=== PATIENT | female | born 1995 | race Caucasian/White ===

== ENCOUNTER 2018-09-04 06:20 | Emergency (ER) | payer OTHER, SELFPAY ==
[2018-09-04 06:21] VITALS: BP 131/101; PULSE 96; RESP 16; TEMP 36.5; O2SAT 99; BMI 37.8
--- NOTE | 2018-09-04 06:24 | ED.VISSUMM ---
- ER Visit Summary Date of Service: 09/04/18 Chief Complaint: Left ankle injury History of Present Illness: The patient is a 22 F presenting for evaluation secondary to a left ankle injury. Patient reports that she slipped on ice today and her left leg buckled underneath her. She reports injury to her left ankle. She has some difficulty with bearing weight on it. She denies any other injuries at this time. She had a fracture to that ankle 13 years ago. Physical Examination: Physical exam unremarkable except for lower extremity exam. Patient has no proximal fibular head tenderness. Normal range of motion of the hip and knee. She has a left lateral malleolar swelling and tenderness with limited range of motion of the ankle. No tenderness over the midfoot, no pain with palpation of the fifth metatarsal. Normal capillary refill normal DP and PT pulses. Test Results: Three-view ankle x-ray by my personal interpretation is negative for fracture Emergency Department Course and Treatment: Patient presented secondary to an ankle injury. X-rays are negative. Patient was provided with an Charli wrap crutches and Naprosyn in the emergency department. She was recommended on rest ice elevation and NSAIDs as well as range of motion exercises at home. Disposition: Discharge Impression: 1. Left ankle sprain This note was generated with [employer] dictation software. It may contain incorrect words, spelling, and punctuation that were not noted in review of the chart prior to signing ED Disposition - Plan for ED Patient: Disposition: Home or Assisted Living Diagnosis: Left ankle sprain Instructions: ED Sprain Ankle W X Ray Prescriptions: Naproxen [Naprosyn] 500 mg PO BID PRN #20 tab Referrals: Marvin Valiente MD [Primary Care Provider] - 10-14 Days if not better
--- NOTE | 2018-09-04 06:25 | RAD_ITS ---
STUDY: X-RAY - LEFT ANKLE REASON FOR EXAM: Female, 22 years old. Left-sided ankle pain after fall. TECHNIQUE: 3 view(s) of the ankle. COMPARISON: Prior comparison studies are not available for review at this time. FINDINGS: Normal visualized distal tibia and fibula. Normal medial and lateral malleoli. Normal tibiotalar articulation and ankle mortise. There is a lucency within the medial talar dome suggesting OCD. Small bone fragment is located posterior to the talus may be the result of avulsion injury. There is a small plantar calcaneal spur. The tarsal bones otherwise have a grossly normal appearance. The joint spaces are within normal limits. There is soft tissue swelling of the medial ankle. RAD/Ankle min 3 Views IMPRESSION: 1. Possible avulsion injury of the posterior ankle. 2. OCD of the medial talar dome. Electronically Signed: Sarah Serrato MD at 6:55 EST , Service support ,
[2018-09-04] MEDS: Naproxen 500 MG Tablet PO (06:42)
[2018-09-04 06:48] VITALS: BP 128/90; PULSE 90; RESP 16; O2SAT 96
== END 2018-09-04 06:49 | disposition home or self-care (01) ==
PROVIDERS: Emergency Provider Emergency Medicine; Family Provider Family Medicine; PCP Family Medicine
DX: S93.402A Sprain of unspecified ligament of left ankle, initial encounter (principal); W00.0XXA Fall on same level due to ice and snow, initial encounter; Y93.89 Activity, other specified; Y92.89 Other specified places as the place of occurrence of the external cause; Y99.8 Other external cause status
CPT/HCPCS: 73610; 99284

== ENCOUNTER 2018-10-15 11:23 | Day surgery (SDC) | payer OTHER, SELFPAY ==
[2018-10-15] VITALS (7 sets, daily range): BP systolic 116–135; BP diastolic 76–91; PULSE 95–125; RESP 16; TEMP 35.9–36.4; O2SAT 94–99; BMI 39.3
--- NOTE | 2018-10-15 | BON_PTH ---
PATIENT: MARLO PALMER [place] [facility] [id number] AGE/SX: 23/F ROOM: RE10/15/[address]: Dr. Andria Bal DPM : 1995 BED: DIS: 10/15/2018 SPEC #: [id number] RECD: 10/16/18 12:27 STATUS: BEN REMary Lou #: [id number] KELLIE: 10/15/18 00:[address]: Andria Bal DEPT: SURGICAL PATHOLOGY RECD BY: Chance Collins ENTERED: 10/16/18 12:27 SP TYPE: Bone OTHR DR: Dr. Marvin Valiente MD Tissues: Bone of ankle, NOS Procedures: Decalcification bone/plaque Surgery Specimen Level IV HEADER OPERATION: Ankle arthrotomy with excision of talus fracture fragments PRE-OP DIAGNOSIS: Displaced dome fracture of left talus TISSUE SUBMITTED: Talar osteochondral defect left ankle MICROSCOPIC DIAGNOSIS Osteochondral defect, left ankle, biopsy: Fragments of hyaline cartilage with reactive change. AM:reyes 10/21/18 MICROSCOPIC DESCRIPTION Slides are reviewed. GROSS DESCRIPTION Received in fixative is one container labeled with the patient's name and designated left ankle. The specimen consists of multiple pieces of bone that in aggregate measure 1.5 x 0.3 x 0.1 cm. The specimen is totally submitted in one cassette after decalcification. / SJ:reyes 10/16/18 TC:5 CPT: 46763, 20998
[2018-10-15 11:49] LABS: Internal QC Validated? YES +Cl - CLEAR BKGD
[2018-10-15 11:52] LABS: Pregnancy, Urine Negative Negative
[2018-10-15 12:21] LABS: International Normalized Ratio 0.9; Prothrombin Time (Protime)PT. 12.3 SECONDS (11.7-14.9)
[2018-10-15 12:22] LABS: Hematocrit 44.3 % (37-47); Hemoglobin 13.9 g/dl (12.0-15.0); Mean Corp Hgb Conc 31.4 g/gl (32-36); Mean Corpuscular Hgb 26.8 pg (27.0-32.0); Mean Corpuscular Volume 85.4 fL (81-99); RBC Distribution Width CV 13.8 % (11.6-14.6); RBC Distribution Width SD 42.8 fl (35.1-43.9); Red Blood Count 5.19 M/mm3 (4.2-5.4); White Blood Count 8.8 K/mm3 (4.4-11.0)
[2018-10-15 12:23] LABS: Mean Platelet Vol. 9.8 fl (6.2-12.0); Platelet Count 411 K/mm3 (150-450); Scan Indicated on CBC? Y/N NO
[2018-10-15 12:57] LABS: AST(SGOT) 13 U/L (15-37); Alanine Aminotransfer ALT/SGPT 30 U/L (13-56); Albumin, Serum 3.8 g/dL (3.2-5.0); Alkaline Phosphatase 91 U/L (45-117); Bilirubin, Direct 0.07 mg/dL (0.00-0.30); Globulin 3.6 g/dL (2.2-4.2); Protein, Total 7.4 g/dL (6.4-8.2)
--- NOTE | 2018-10-15 13:08 | RAD_ITS ---
STUDY: X-RAY - LEFT ANKLE REASON FOR EXAM: Female, 23 years old. Left ankle arthrotomy with excision of talar fracture fragments TECHNIQUE: 2 view(s) of the ankle. COMPARISON: Previous study of September 04, 2018 FINDINGS: 2 intraoperative views of the left ankle were obtained. Hemostats and probe are seen overlying the medial tibial plateau. RAD/Ankle 2 Views IMPRESSION: 2 intraoperative views of the left ankle obtained. Total fluoroscopy time of 56.1 seconds. Electronically Signed: Ed Cuevas MD at 20:54 EDT , Service support ,
[2018-10-15] MEDS: Bupivacaine Mpf 0.5% 30 ML VIAL (17:15)
--- NOTE | 2018-10-15 17:51 | PCM.DC.ORTHO ---
Discharge Activity: May Not Drive, May not drive while taking narcotic pain medications., May Not Shower, Use Walker, Use Crutches Ice area for (Minutes): 20 - apply ice behind left knee, 20 minutes of each hour while awake Weight Bearing Status: No weight bearing Keep extremity elevated above heart level: Operative Extremity Call your doctor if your incision/area has: Sudden Increased Bleeding Call your doctor if you observe: Fever of 101 or Higher, Inability to urinate, Shortness of breath, Dizziness, Increased palpitations (irregular heartbeat), Calf discomfort, Uncontrolled pain Cleanse incision/area with: Keep Dressing Clean & Dry Allergies/Adverse Reactions: Allergies amoxicillin [From Augmentin] Allergy (Verified 10/09/18 14:54) Rash clavulanic acid [From Augmentin] Allergy (Verified 10/09/18 14:54) Rash Medications to take at Discharge Aspirin/Acetaminophen/Caffeine [Excedrin Extra Strength Caplet] 1 each PO DAILY PRN 10/09/18 Hydrocodone Bitart/Apap 5-325 [Leslie 5MG-325MG] 1 tab PO Q4H PRN PRN 7 Days #42 tab 10/15/18 The following prescriptions were given: Hydrocodone Bitart/Apap 5-325 [Leslie 5MG-325MG] 1 tab PO Q4H PRN PRN 7 Days #42 tab PRN Reason: Pain Primary Care Physician: Marvin Valiente MD [Primary Care Provider] - Test Results: Test results from this visit will be discussed in further detail at your follow-up appointment, if applicable. Please Follow Up With: Andria Bal DPM - please follow up at your previously scheduled post operative appointment Proposed Discharge Date: 10/15/18
--- NOTE | 2018-10-15 17:54 | DCINST_ITS ---
Discharge Activity: May Not Drive, May not drive while taking narcotic pain medications., May Not Shower, Use Walker, Use Crutches Ice area for (Minutes): 20 - apply ice behind left knee, 20 minutes of each hour while awake Weight Bearing Status: No weight bearing Keep extremity elevated above heart level: Operative Extremity Call your doctor if your incision/area has: Sudden Increased Bleeding Call your doctor if you observe: Fever of 101 or Higher, Inability to urinate, Shortness of breath, Dizziness, Increased palpitations (irregular heartbeat), Calf discomfort, Uncontrolled pain Cleanse incision/area with: Keep Dressing Clean & Dry Allergies/Adverse Reactions: Allergies amoxicillin [From Augmentin] Allergy (Verified 10/09/18 14:54) Rash clavulanic acid [From Augmentin] Allergy (Verified 10/09/18 14:54) Rash Medications to take at Discharge Aspirin/Acetaminophen/Caffeine [Excedrin Extra Strength Caplet] 1 each PO DAILY PRN 10/09/18 Hydrocodone Bitart/Apap 5-325 [[place] 5MG-325MG] 1 tab PO Q4H PRN PRN 7 Days #42 tab 10/15/18 The following prescriptions were given: Hydrocodone Bitart/Apap 5-325 [[place] 5MG-325MG] 1 tab PO Q4H PRN PRN 7 Days #42 tab PRN Reason: Pain Primary Care Physician: Marvin Valiente MD [Primary Care Provider] - Test Results: Test results from this visit will be discussed in further detail at your follow- up appointment, if applicable. Please Follow Up With: Andria Bal DPM - please follow up at your previously scheduled post operative appointment Proposed Discharge Date: 10/15/18
--- NOTE | 2018-10-15 17:54 | PCM.OPRPT ---
Report of Operation Date of Procedure: 10/15/18 Pre-Operative Diagnosis: L talus osteochondral lesion/fracture of medial talar dome Post-Operative Diagnosis: same Surgery/Procedure Performed:: L ankle arthrotomy with microfracture and application of Biocartilage allograft Description of Surgical Findings:: see dictation greeting card writer: Rhona Lucia Type of Anesthesia:: General/Supplemental Specimen's removed: L talar bone/cartilage Estimated Blood Loss (mL): minimal Description of Procedure: Pt is a 23 yo F who slipped on ice on 09/04/2018 and injured her left ankle. She was evaluated at an OSH ER the same day and was diagnosed with a sprain. Her pain did not resolve and her PCP referred her to my clinic with repeat radiographs. She was seen in my clinic 09/23/2018 and given her clinical presentation and the films I ordered an MRI for evaluation of an osteochondral lesion/fracture of the talar dome. MRI of left ankle on 09/29/2018 noted an osteochondral fracture of the medial talar dome with fracture fragments, along with several sprains, contusions and a small nondisplaced fracture of the posterior malleolus. Findings were discussed with the patient and she elected to proceed with surgical intervention of the osteochondral fracture of the medial talar dome. Pt would like surgical intervention today. All risks, complications, and alternatives were discussed with the patient, and the patient signed an informed consent. No guarantees were given. Procedure: On 10/15/2018, Yani Urbina was visually and verbally identified in the preoperative holding area. The consent form was again reviewed with the patient, as were all risks, complications, and alternatives and the patient wished to proceed with the proposed surgery. The left ankle was marked as the correct operative extremity. The patient was brought to the operating room and placed on the operating room table in the normal SUPINE position. a lead apron was placed circumferentially around the patient. After induction by anesthesia, a surgical time out was performed and all present were in agreement. a pneumatic thigh tourniquet was then placed. At this time the left lower extremity was prepped and draped in the usual sterile fashion. after exsanguination with an esmarch the tourniquet was inflated to 300 mmHg. At this time attention was directed to the medial ankle gutter. Using a #15 blade, a curvilinear incision was made over the medial gutter of the ankle. The incision was bluntly carried deep through the subcutaneous tissues with careful attention paid to all bleeders, which were clamped and tied or bovied as necessary. All vital neurovascular structures were retracted. The medial talar dome was visualized. The tibiotalar joint itself was noted to be tight and significantly narrowed. At this time I utilized the Arthrex ankle distractor to aide in visualization of the damaged cartilage. As the area of concern was still not clearly seen we did engage a thigh bravo under the drapes. This again improved the distraction of the ankle joint and with plantarflexion I could locate and visualize the defect, however, the narrowness of her tibiotalar joint did not allow for typical instrumention in an ankle arthrotomy to be successfully utilized. At this time I used the Arthrex small joint arthroscopy camera to aid in visualization of the medial talar dome defect along with microsurgery pics, curettes, and graspers to remove damage cartilage. An attempt to access the area of concern from a lateral port was unsuccessful even with maximal distraction. I returned to the medial incision for access and utilized the microsurgery instruments. 5 cc of 1% lidocaine with epi was used while the the pneumatic thigh tourniquet was deflated to aid in visualization. Copious amounts of normal sterile saline was used through the case to irrigate the joint of debrided and loose cartilage and fracture fragments. Once sufficient loose cartilage and bone fracture fragments of the talus were removed and sent to pathology the ankle joint was dried with suction and manually. The Arthrex Biocartilage was then packed into the deficit utilizing the camera for visualization and the microsurgery tools. Once a satisfactory amount was applied, Evicel fibrin sealant was applied to the Biocartilage with the joint being held still for > 60 seconds. Closure was then initiated with 2.0 vicryl for deep tissues, 3.0 vicryl for subcutaneous tissues, and 3.0 prolene for skin. 10 cc of 0.5% marcaine plain was injected at the end of the case as an ankle block to aid in post operative pain management. betadine adaptic, and dry, sterile dressings were applied to the incisions with a multi layer compressive dressing and well padded posterior splint. All cartilage and bony fracture fragments were sent to pathology. Total tourniquet time was 180 minutes with immediate capillary refill noted to all digits upon deflation after the first 120 minutes and after a period of > 30 minutes the tourniquet was reinflation for an additional 44 minutes. Again, upon deflation of the tourniquet immediate capillary refill was noted to all digits. The patient tolerated the procedure and anesthesia well. The patient was then transported to the postanesthesia care unit by a member of the anesthesia team and myself with all vital signs stable and neurovascular status of the left lower extremity equal to pre-operative levels. At the end of the case all sponge, needle and instrument counts were found to be correct. Physician clinic office assistant was integral in all portions of this procedure. They assisted with positioning the patient, draping the extremity, holding retractors, closing the wound, and applying the dressing. This was all done under my direct supervision. The physician clinic office assistant was essential for a successful, efficient surgery. Grafts/Implants Used: Arthrex Biocartilage with Evicel fibrin sealant - Complications none - Admit VTE Documentation VTE Present on Admission: No VTE Mechan Device Prophylaxis: SCD's, Knee High ESPINOZA Hose VTE Pharm Prophylaxis ordered?: Yes
--- NOTE | 2018-10-15 17:57 | OP.PCM_ITS ---
Report of Operation Date of Procedure: 10/15/18 Pre-Operative Diagnosis: L talus osteochondral lesion/fracture of medial talar dome Post-Operative Diagnosis: same Surgery/Procedure Performed:: L ankle arthrotomy with microfracture and application of Biocartilage allograft Description of Surgical Findings:: see dictation professor of industrial technology: Rhona Lucia Type of Anesthesia:: General/Supplemental Specimen's removed: L talar bone/cartilage Estimated Blood Loss (mL): minimal Description of Procedure: Pt is a 23 yo F who slipped on ice on 09/04/2018 and injured her left ankle. She was evaluated at an OSH ER the same day and was diagnosed with a sprain. Her pain did not resolve and her PCP referred her to my clinic with repeat radiographs. She was seen in my clinic 09/23/2018 and given her clinical presentation and the films I ordered an MRI for evaluation of an osteochondral lesion/fracture of the talar dome. MRI of left ankle on 09/29/2018 noted an osteochondral fracture of the medial talar dome with fracture fragments, along with several sprains, contusions and a small nondisplaced fracture of the p osterior malleolus. Findings were discussed with the patient and she elected to proceed with surgical intervention of the osteochondral fracture of the medial talar dome. Pt would like surgical intervention today. All risks, complications, and alternatives were discussed with the patient, and the patient signed an informed consent. No guarantees were given. Procedure: On 10/15/2018, Yani Urbina was visually and verbally identified in the preoperative holding area. The consent form was again reviewed with the patient, as were all risks, complications, and alternatives and the patient wish ed to proceed with the proposed surgery. The left ankle was marked as the correct operative extremity. The patient was brought to the operating room and placed on the operating room table in the normal SUPINE position. a lead apron was placed circumferentially around the patient. After induction by anesthesia, a surgical time out was performed and all present were in agreement. a pneumatic thigh tourniquet was then placed. At this time the left lower extremity was prepped and draped in the usual sterile fashion. after exsanguination with an esmarch the tourniquet was inflated to 300 mmHg. At this time attention was directed to the medial ankle gutter. Using a #15 blade, a curvilinear incision was made over the medial gutter of the ankle. The incision was bluntly carried deep through the subcutaneous tissues with careful attention paid to all bleeders, which were clamped and tied or bovied as necessary. All vital neurovascular structures were retracted. The medial talar dome was visualized. The tibiotalar joint itself was noted to be tight and significantly narrowed. At this time I utilized the Arthrex ankle distractor to aide in visualization of the damaged cartilage. As the area of concern was still not clearly seen we did engage a thigh bravo under the drapes. This again improved the distraction of the ankle joint and with plantarflexion I could locate and visualize the defect, however, the narrowness of her tibiotalar joint did not allow for typical instrumention in an ankle arthrotomy to be successfully utilized. At this time I used the Arthrex small joint arthroscopy camera to aid in visualization of the medial talar dome defect along with microsurgery pics, curettes, and graspers to remove damage cartilage. An attempt to access the area of concern from a lateral port was unsuccessful even with maximal distraction. I returned to the medial incision for access and utilized the microsurgery instruments. 5 cc of 1% lidocaine with epi was used while the the pneumatic thigh tourniquet was deflated to aid in visualization. Copious amounts of normal sterile saline was used through the case to irrigate the joint of debrided and loose cartilage and fracture fragments. Once sufficient loose cartilage and bone fracture fragments of the talus were removed and sent to pathology the ankle joint was dried with suction and manually. The Arthrex Biocartilage was then packed into the deficit utilizing the camera for visualization and the microsurgery tools. Once a satisfactory amount was applied, Evicel fibrin sealant was applied to the Biocartilage with the joint being held still for > 60 seconds. Closure was then initiated with 2.0 vicryl for deep tissues, 3.0 vicryl for subcutaneous tissues, and 3.0 prolene for skin. 10 cc of 0.5% marcaine plain was injected at the end of the case as an ankle block to aid in post operative pain management. betadine adaptic, and dry, sterile dressings were applied to the incisions with a multi layer compressive dressing and well padded posterior splint. All cartilage and bony fracture fragments were sent to pathology. Total tourniquet time was 180 minutes with immediate capillary refill noted to all digits upon deflation after the first 120 minutes and after a period of > 30 minutes the tourniquet was reinflation for an additional 44 minutes. Again, upon deflation of the tourniquet immediate capillary refill was noted to all digits. The patient tolerated the procedure and anesthesia well. The patient was then transported to the postanesthesia care unit by a member of the anesthesia team and myself with all vital signs stable and neurovascular status of the left lower extremity equal to pre-operative levels. At the end of the case all sponge, needle and instrument counts were found to be correct. Physician dental assistant teacher was integral in all portions of this procedure. They assisted with positioning the patient, draping the extremity, holding retractors, closing the wound, and applying the dressing. This was all done under my direct supervision. The physician dental assistant teacher was essential for a successful, efficient surgery. Grafts/Implants Used: Arthrex Biocartilage with Evicel fibrin sealant - Complications none - Admit VTE Documentation VTE Present on Admission: No VTE Mechan Device Prophylaxis: SCD's, Knee High ESPINOZA Hose VTE Pharm Prophylaxis ordered?: Yes
--- NOTE | 2018-10-15 18:10 | RAD_ITS ---
STUDY: X-RAY - LEFT ANKLE REASON FOR EXAM: Female, 23 years old. Status post ankle arthrotomy TECHNIQUE: 3 view(s) of the ankle. COMPARISON: Prior study of earlier this date FINDINGS: Normal visualized distal tibia and fibula. Normal medial and lateral malleoli. Normal tibiotalar articulation and ankle mortise. There is a small cortical defect within sclerotic margins of the medial talar plateau consistent with osteochondritis dissecans. The visualized subtalar, talonavicular, calcaneocuboid and tarsal articulations are normal. The soft tissue structures are unremarkable. RAD/Ankle min 3 Views IMPRESSION: Cortical defect with sclerotic margins of the medial talar plateau consistent with osteochondritis dissecans. Electronically Signed: Ed Cuevas MD at 22:18 EDT , Service support ,
[2018-10-15] MEDS: Ketorolac 30 MG/ML Syringe IV (18:29)
== END 2018-10-15 20:10 | disposition home or self-care (01) ==
LOC: SDC 11:25 → AC 11:25
PROVIDERS: Anesthesiology; Family Provider Family Medicine; PCP Family Medicine; Referring Provider Podiatrist Foot & Ankle Surgery; Visit Provider Podiatrist Foot & Ankle Surgery
PROC: (CPT 29892; principal; 2018-10-15 12:45)
DX: S92.142A Displaced dome fracture of left talus, initial encounter for closed fracture (principal); F17.200 Nicotine dependence, unspecified, uncomplicated; W00.0XXA Fall on same level due to ice and snow, initial encounter; Y93.89 Activity, other specified; Y92.89 Other specified places as the place of occurrence of the external cause; Y99.8 Other external cause status
CPT/HCPCS: 01464; 29892; 73600; 73610; 76000; 80076; 81025; 85027; 85610; 85730; 88304; 88305; 88311; J7120; J2405

== ENCOUNTER → 2019-01-28 | Outpatient (CLI) | payer OTHER, SELFPAY ==
[2018-10-15 11:39] VITALS: BMI 39.3
[2019-02-02 17:00] LABS: HPV Reflexed? NOT INDICATED
== END | disposition home or self-care (01) ==
LOC: LABSPEC 13:21
PROVIDERS: PCP Family Medicine; Visit Provider Obstetrics & Gynecology
DX: Z12.4 Encounter for screening for malignant neoplasm of cervix (principal)
CPT/HCPCS: 88175; G0145

== ENCOUNTER → 2020-03-01 | Outpatient (CLI) | payer OTHER, SELFPAY ==
[2018-10-15 11:39] VITALS: BMI 39.3
--- NOTE | 2020-03-01 12:49 | US_ITS ---
STUDY: SUPERFICIAL ULTRASOUND - RIGHT WRIST REASON FOR EXAM: Female, 24 years old. Palpable wrist lump RT TECHNIQUE: A superficial ultrasound was performed with real-time and static lee-scale imaging. COMPARISON: None. FINDINGS: The palpable abnormality corresponds to a 3 mm x 3 mm x 2 mm cyst. This most likely represents a ganglion cyst. US/Ext Non Vasc Limited/Soft Tiss IMPRESSION: The palpable abnormality corresponds to a 3 mm x 3 mm x 2 mm cyst. This most likely represents a ganglion cyst. Electronically Signed: Chaim Pettit, at 15:02 EDT , Service support ,
== END | disposition home or self-care (01) ==
LOC: US 12:45
PROVIDERS: PCP Family Medicine; Referring Provider Physician Assistant; Visit Provider Physician Assistant
DX: M25.531 Pain in right wrist (principal)
CPT/HCPCS: 76882

== ENCOUNTER 2021-07-20 14:38 | Emergency (ER) | payer OTHER, SELFPAY ==
[2021-07-20 14:38] VITALS: BP 151/84; PULSE 88; RESP 18; TEMP 36.9; O2SAT 97; BMI 38.2
--- NOTE | 2021-07-20 15:34 | EX.ED.DYSGE1 ---
HPI History of Present Illness Chief Complaint: General Illness Narrative Narrative: Patient presenting with body aches, chills, temperature of 100 ?F. Symptoms started yesterday. She has a mild cough this morning. She denies chest pain or shortness of breath. She does complain of headache. She tried to take ibuprofen but states she vomited this up. She has no history of migraines. No visual disturbances. She states she took an at-home test which was negative today. Patient denies diarrhea, constipation, urinary symptoms. Patient states that she has some friends that she went to a concert with this last week but tested positive for COVID-19. She also has some people at work that were very sick. PFSH PFSH Medical History no medical history Home Medications [id number]-[id number]-owaiyist [Excedrin Extra Strength Caplet] 1 ea PO DAILY PRN 10/09/18 [History Last Taken Unknown] meloxicam 15 mg PO DAILY 07/20/21 [History Last Taken Unknown] ondansetron 4 mg PO Q8H PRN PRN #14 tab 07/20/21 [Rx Last Taken Unknown] Allergy/AdvReac Type Severity Reaction Status Date / Time amoxicillin [From Augmentin] Allergy Rash Verified 07/20/21 14:41 clavulanic acid Allergy Rash Verified 07/20/21 14:41 [From Augmentin] Social History Smoking Status: Current every day smoker tobacco type: cigarettes ROS ROS ED Constitutional Constitutional ED: Reports chills and fever(s) Eyes Eyes: Denies blurry vision or diplopia ENT ENT ED: Denies rhinorrhea or sore throat Cardiovascular Cardiovascular: Denies chest pain Respiratory/Chest Respiratory/Chest: Reports cough; Denies dyspnea or dyspnea on exertion Gastrointestinal Gastrointestinal: Reports nausea and vomiting; Denies abdominal pain, constipation or diarrhea Genitourinary Genitourinary ED: Denies dysuria or hematuria Musculoskeletal Musculoskeletal: Reports myalgias; Denies arthralgias Integumentary Denies rash Neurologic Neurologic: Reports headache(s); Denies paresthesias or weakness Psychiatric Psychiatric: Denies anxiety or depression EXAM Physical Exam Const Vital Signs: 07/20/21 14:38 07/20/21 14:46 07/20/21 17:45 Temperature 98.4 F Temperature Source Temporal Pulse Rate 88 Respiratory Rate 18 18 Respiratory Effort Normal Non-Labored Respiratory Pattern Normal Blood Pressure 151/84 H Blood Pressure Mean 106 Pulse Ox 97 Oxygen Delivery Method Room Air Positive well nourished General Appearance ED: NAD; Negative for pallor HEENT Reports moist mucous membranes Negative for trauma Eyes PERRL and EOMs intact bilaterally Neck no lymphadenopathy and supple Chest Wall inspection of chest normal and palpation of chest normal Resp normal respiratory effort and clear to auscultation bilaterally Cardio regular rate and regular rhythm GI normal to inspection, nondistended, normoactive bowel sounds Neuro oriented x3, CN's II-XII intact bilaterally and no sensory deficits noted Sensorium / Orientation: alert Motor Exam: strength 5/5 throughout Psych mental status grossly normal Skin no rashes or lesions noted General Skin Exam: Negative for jaundice or pallor MDM MDM MDM Narrative Medical decision making narrative: Patient given Zofran and Tylenol for headache. Rapid Covid testing is negative. I offered to do a PCR test she cannot quarantine at home for the results. At this point she states that her headache is too bad to go home. I had an IV placed and ordered 500 cc of normal saline with Reglan and Benadryl as well as Toradol. Patient received about 400 cc and then asked for the IV to be removed. She did get medicated. On reevaluation the patient states that she just wants to go home. I did obtain a Covid PCR which later came back positive. I will refer her for the monoclonal antibodies. Impression: 1. Headache 2. COVID-19 Lab Data Attestation: I reviewed the patient's lab results. Labs: Laboratory Results - last 24 hr 07/20/21 16:00 COVID-19 (DAIANA) Detected Discharge Plan Triage Chief Complaint: General Illness ED Provider: Ron Culp Dx/Rx/DC Orders Prescriptions: New ondansetron 4 mg tablet,disintegrating 4 mg PO Q8H PRN PRN (Reason: Nausea) Qty: 14 RF: 0 No Action Excedrin Extra Strength 1 EACH tablet 1 ea PO DAILY PRN (Reason: Headache) RF: 0 meloxicam 15 mg tablet 15 mg PO DAILY RF: 0 Primary Care Provider: Care Physician,No Primary Referrals: Yandel Lizama DO [STAFF PHYSICIAN] - As soon as possible Care Physician,No Primary [Primary Care Provider] - Disposition Disposition: Home, Self Care Discharge Date/Time: 07/20/21 17:57
[2021-07-20] MEDS: Ondansetron ODT 4 MG Tablet PO (15:37)
[2021-07-20] MEDS: Acetaminophen 500 MG Tablet 1000 MG PO (15:37)
[2021-07-20] MEDS: Ketorolac 15 MG/ML Vial IV (17:00)
[2021-07-20] MEDS: DiphenhydrAMINE 50 MG/ML Syringe 25 MG IV (17:00)
[2021-07-20] MEDS: Metoclopramide 10 MG/2 ML Vial IV (17:00)
[2021-07-20 17:45] VITALS: RESP 18
== END 2021-07-20 17:57 | disposition home or self-care (01) ==
PROVIDERS: Emergency Provider Student in an Organized Health Care Education/Training Program
DX: U07.1 COVID-19 (principal); F17.210 Nicotine dependence, cigarettes, uncomplicated
CPT/HCPCS: 87426; 87635; 96374; 96375; 99284; J7040; U0005; U0003

== ENCOUNTER 2022-08-17 21:16 | Emergency (ER) | payer OTHER, SELFPAY ==
[2022-08-17 21:17] VITALS: BP 166/93; PULSE 86; RESP 18; TEMP 35.7; O2SAT 97; BMI 38.2
--- NOTE | 2022-08-17 22:23 | CT_ITS ---
INDICATION: headache EXAMINATION: CT BRAIN - CT Head or Brain W/O Contrast Injection TECHNIQUE: Multiple axial images were obtained of the head without intravenous contrast. A radiation dose optimization technique was used for this scan. IV Contrast dosage and agent: None. COMPARISON: FINDINGS: BRAIN: No acute bleed. No edema. Manning-white matter differentiation is maintained. VENTRICLES AND SULCI: Not dilated. EXTRA-AXIAL: No hemorrhage, fluid collection, or mass. CALVARIUM / SKULL BASE: Unremarkable. FACE/SINUSES: Unremarkable. SOFT TISSUES: Unremarkable. CT/Brain/Head without Contrast IMPRESSION: No acute abnormality. Electronically Signed: Susie Wakefield MD at 23:33 EST ,
[2022-08-17] MEDS: Ketorolac 30 MG/ML Syringe IV (22:48)
[2022-08-17] MEDS: dexAMETHasone 10 MG/ML Vial IV (22:48)
--- NOTE | 2022-08-18 00:10 | EX.ED.DYSGE1 ---
HPI History of Present Illness Chief Complaint: Headache Narrative Narrative: Patient is a 26-year-old female with no significant reported past medical history. She states that she developed a headache yesterday which improved with some Tylenol and Motrin. She states however the headache returned today and she took Excedrin and there is no symptom improvement. She states the headache came on gradually and increased over the course of hours. She denies any recent trauma. She states that her boyfriend has been sick recently with some type of viral infection and she now has congestion and drainage as well. She reports that he had COVID 3 times in the past and this does not feel similar nature. She does report a history of brain tumor and her grandmother. She states that with his history and the fact the headache is not improving as it did the other day she presents for evaluation [facility] Medical History no medical history Home Medications nidrahl-lexctoubkbrac-utbnuvue 250 mg-250 mg-65 mg tablet (Excedrin Extra Strength) 1 ea PO DAILY PRN Headache 10/09/18 [History Last Taken Unknown] meloxicam 15 mg tablet 15 mg PO DAILY 07/20/21 [History Last Taken Unknown] ondansetron 4 mg disintegrating tablet 4 mg PO Q8H PRN PRN Nausea #14 tabs 07/20/21 [Rx Last Taken Unknown] prednisone 20 mg tablet 40 mg PO DAILY 5 days #10 tabs 08/18/22 [Rx Last Taken Unknown] Allergy/AdvReac Type Severity Reaction Status Date / Time amoxicillin [From Augmentin] Allergy Rash Verified 08/17/22 21:17 clavulanic acid Allergy Rash Verified 08/17/22 21:17 [From Augmentin] Social History Smoking Status: Current every day smoker tobacco type: cigarettes ROS ROS ED Constitutional Constitutional ED: Denies chills or fever(s) Eyes Eyes: Denies change in vision ENT ENT ED: Reports rhinorrhea; Denies sore throat Cardiovascular Cardiovascular: Denies chest pain Respiratory/Chest Respiratory/Chest: Reports cough; Denies dyspnea Gastrointestinal Gastrointestinal: Denies abdominal pain, diarrhea, nausea or vomiting Genitourinary Genitourinary ED: Denies dysuria Musculoskeletal Musculoskeletal: Reports myalgias Integumentary Denies rash Neurologic Neurologic: Reports headache(s) Hematologic/Lymphatic Hematologic/Lymphatic: Denies easy bleeding or easy bruising EXAM Physical Exam Const Vital Signs: 08/17/22 21:17 Temperature 96.3 F L Temperature Source Temporal Pulse Rate 86 Respiratory Rate 18 Blood Pressure 166/93 H Blood Pressure Mean 117 Pulse Ox 97 Oxygen Delivery Method Room Air Positive well nourished, well developed and obese General Appearance ED: well developed Nutritional Appearance: obese HEENT Reports moist mucous membranes HEENT Narrative: Cobblestoning the posterior pharynx consistent with sinus drainage and the nasal mucosa is hyperemic and boggy Eyes PERRL and EOMs intact bilaterally Neck supple Neck Narrative: No nuchal rigidity or meningeal signs present Resp normal respiratory effort and clear to auscultation bilaterally Cardio regular rate and regular rhythm Extremity normal to inspection Neuro oriented x3 and CN's II-XII intact bilaterally Neuro Narrative: Cranial nerves II through XII are grossly intact there are no focal neurologic deficit. No pronator drift no dysmetria no truncal ataxia. NIH stroke scale score of 0 Sensorium / Orientation: alert Psych mental status grossly normal Skin no rashes or lesions noted MDM MDM MDM Narrative Medical decision making narrative: Patient presented to the ER hypertensive but otherwise stable vitals. Her neurologic exam is normal. There is no report or signs of recent trauma. She states the headache came on gradually and increased over the course of hours. At this time as concern for infectious process such as meningitis or COVID is low do not feel there is need for blood work or viral swab. However as patient does report a family history of brain tumor and this headache is different than her baseline I will perform a head CT. This revealed no acute findings. Patient was given IV Toradol and Decadron and on reevaluation reported improvement of her headache and her neuro exam remained normal. Therefore at this time with resolution of symptoms negative CT scan and persistently normal neuro exam she is safe for discharge. Radiography Diagnostic Testing: Clinical Impression(s) from Imaging Studies Brain CT 08/17/22 22:23 IMPRESSION: No acute abnormality. Electronically Signed: Susie Wakefield MD at 23:33 EST , Discharge Plan Triage Chief Complaint: Headache Other Complaint: Shortness of Breath ED Provider: Mehran Frausto Dx/Rx/DC Orders Clinical Impression: Cephalgia, Viral syndrome Instructions: ED Headache Unspecified Prescriptions: New prednisone 20 mg tablet 40 mg PO DAILY 5 Days Qty: 10 0RF No Action Excedrin Extra Strength 1 EACH tablet 1 ea PO DAILY PRN (Reason: Headache) ondansetron 4 mg tablet,disintegrating 4 mg PO Q8H PRN PRN (Reason: Nausea) Qty: 14 0RF meloxicam 15 mg tablet 15 mg PO DAILY Label Comments: TAKE 1 TABLET BY MOUTH FOR 30 DAYS NEEDED, TAKE WITH FOOD Stand Alone Forms: ED Work / School Excuse Primary Care Provider: Care Physician,No Primary Referrals: Art Dumont MD [Med Staff - Physician General Internal Medicine] - Care Physician,No Primary [Primary Care Provider] - Activity Restrictions/Additional Instructions: Your work-up today indicates that your headache is secondary to sinus inflammation. The head CT did not reveal any tumor or brain mass. Take the steroid as directed to help control the inflammation and continue with Tylenol and/or Motrin for pain control. Please return to the ER should you have any further concerns Disposition Disposition: Home, Self Care Discharge Date/Time: 08/18/22 00:17
[2022-08-18 00:17] VITALS: O2SAT 99
== END 2022-08-18 00:17 | disposition home or self-care (01) ==
PROVIDERS: Emergency Provider Emergency Medicine; Visit Provider Emergency Medicine
DX: R51.9 Headache, unspecified (principal); B34.9 Viral infection, unspecified; F17.210 Nicotine dependence, cigarettes, uncomplicated; R06.02 Shortness of breath; E66.9 Obesity, unspecified; Z79.52 Long term (current) use of systemic steroids
CPT/HCPCS: 70450; 96374; 96375; 99283; A4216

== ENCOUNTER 2023-06-11 17:59 | Emergency (ER) | payer OTHER, SELFPAY ==
[2023-06-11 18:01] VITALS: BP 135/102; PULSE 111; RESP 18; TEMP 36.1; O2SAT 100; BMI 38.1
[2023-06-11 18:45] LABS: Absolute Lymphocyte Count 1.78 X10^3/uL (0.83-4.51); Absolute Neutrophil Count 6.3 X10^3/uL (2.0-7.7); Basophil# 0.03 X10^3/uL; Basophil% 0.3 % (0-1); Eosinophils% 1.1 % (0-5); Hematocrit 43.6 % (37-47); Hemoglobin 13.6 g/dL (12.0-15.0); Lymphocyte # 1.78 X10^3/ul (0.83-4.51); Lymphocyte % 19.9 % (19-41); Mean Corp Hgb Conc 31.2 g/dL (32-36); Mean Corpuscular Hgb 26.4 pg (27.0-32.0); Mean Corpuscular Volume 84.7 fL (81-99); Monocyte% 7.8 % (0-10); NRBC Flagged by Analyzer 0 % (0-5); Neutrophil # 6.32 X10^3/uL (2.7-7.7); Neutrophil % 70.6 % (47-70); Platelet Count 371 K/mm3 (150-450); RBC Distribution Width CV 13.1 % (11.6-14.6); RBC Distribution Width SD 40.4 fl (35.1-43.9); Red Blood Count 5.15 M/mm3 (4.2-5.4)
[2023-06-11 19:05] LABS: ALB/GLOB Ratio 0.9 RATIO (0.9-2.4); AST(SGOT) 12 U/L (15-37); Alanine Aminotransfer ALT/SGPT 27 U/L (13-56); Albumin, Serum 3.6 g/dL (3.2-5.0); Alkaline Phosphatase 87 U/L (45-117); Anion Gap 3 (5-15); BUN 9 mg/dL (7-18); BUN/Creat Ratio 10.2 RATIO (10-20); Calcium,Total 8.7 mg/dL (8.5-10.1); Chloride 106 mmol/L (98-107); Creatinine, Serum 0.88 mg/dL (0.55-1.02); EST Glomerular Filtration Rate 80 mL/min (>60); Est Glom Filt Rate - Afr Amer 97 mL/min (>60); Estimated Creatinine Clearance 84.88 ml/min; Globulin 3.8 g/dL (2.2-4.2); Glucose 104 mg/dL (74-106); Potassium 3.4 mmol/L (3.5-5.1); Protein, Total 7.4 g/dL (6.4-8.2); Sodium Level 136 mmol/L (136-145)
[2023-06-11 19:06] LABS: Internal QC Validated? YES +Cl - CLEAR BKGD; Pregnancy, Serum, hCG Quali. NEGATIVE Negative
--- NOTE | 2023-06-11 19:16 | ED.VIS.GI ---
HPI HPI - GI History of Present Illness Chief Complaint: Abd Pain Detail of Chief Complaint: Nausea, vomiting, and diarrhea Informant: patient Narrative Narrative: Patient presents to the emergency department complaint of diarrhea that initially started yesterday. Patient states that she was at [facility] and drink out of the water fountain there and 20 minutes later started having severe diarrhea. Also complains of diffuse abdominal cramping and has vomited x2. She complains of a headache. She recently traveled to [place] to see family. No recent antibiotic usage. She denies any blood in her stool. She denies sick contacts otherwise. [facility] Medical History (Updated 06/11/23 @ 20:[address] Gregoria Mai, DO) Left ankle pain Osteochondritis dissecans of left ankle Home Medications rksuint-qdrimaallmuvt-syerdqzg 250 mg-250 mg-65 mg tablet (Excedrin Extra Strength) 1 ea PO DAILY PRN Headache 10/09/18 [History Last Taken Unknown] meloxicam 15 mg tablet 15 mg PO DAILY 07/20/21 [History Last Taken Unknown] ondansetron 4 mg disintegrating tablet 4 mg PO Q8H PRN PRN Nausea #14 tabs 07/20/21 [Rx Last Taken Unknown] prednisone 20 mg tablet 40 mg (2 x 20 mg) PO DAILY 5 days #10 tabs 08/18/22 [Rx Last Taken Unknown] dicyclomine 10 mg capsule 20 mg (2 x 10 mg) PO TIDAC #20 CAPSULES 06/11/23 [Rx Last Taken Unknown] ondansetron 4 mg disintegrating tablet 4 mg PO Q8H PRN PRN Nausea #10 tabs 06/11/23 [Rx Last Taken Unknown] Allergy/AdvReac Type Severity Reaction Status Date / Time amoxicillin [From Augmentin] Allergy Rash Verified 06/11/23 18:00 clavulanic acid Allergy Rash Verified 06/11/23 18:00 [From Augmentin] Surgical History (Updated 06/11/23 @ 19:35 by Janette Ceballos) Hx of appendectomy Social History Smoking Status: Current every day smoker tobacco type: cigarettes ROS ROS ED Review of Systems ROS Unobtainable: other Constitutional Constitutional ED: Reports lethargy; Denies chills, fever(s), sweats or weight loss Eyes Eyes: Denies blurry vision, change in vision or diplopia ENT ENT ED: Denies rhinorrhea or sore throat Cardiovascular Cardiovascular: Denies chest pain, orthopnea or racing heartbeat Respiratory/Chest Respiratory/Chest: Denies cough, dyspnea, dyspnea on exertion, orthopnea or sputum Gastrointestinal Gastrointestinal: Reports abdominal pain, diarrhea, nausea and vomiting Genitourinary Genitourinary ED: Denies dysuria, hematuria or urinary frequency Musculoskeletal Musculoskeletal: Denies arthralgias, back pain, myalgias or neck pain Integumentary Denies abscess, Abrasions or rash Neurologic Neurologic: Denies headache(s) or weakness Psychiatric Psychiatric: Denies anxiety, depression or suicidal thoughts Endocrine Endocrinology: Denies polydipsia, polyphagia or polyuria Hematologic/Lymphatic Hematologic/Lymphatic: Denies easy bleeding, easy bruising or lymphadenopathy Allergic/Immunologic Allergic/Immunologic ED: Denies mouth swelling, tongue swelling or urticaria EXAM Physical Exam Const Vital Signs: 06/11/23 18:01 Temperature 97 F L Temperature Source Temporal Pulse Rate 111 H Respiratory Rate 18 Blood Pressure 135/102 H Blood Pressure Mean 113 Pulse Ox 100 Oxygen Delivery Method Room Air Positive well nourished and well developed General Appearance ED: well developed and NAD HEENT Reports TM's clear and moist mucous membranes normocephalic and atraumatic; Negative for trauma or tenderness Tympanic Membrane ED: Yes TM's clear Eyes PERRL and EOMs intact bilaterally General Eye ED: Negative for pale conjunctiva or scleral icterus Neck no lymphadenopathy, supple and no JVD General: Negative for tenderness Chest Wall inspection of chest normal and palpation of chest normal Chest: Negative for tenderness Resp normal respiratory effort and clear to auscultation bilaterally Effort and Inspection: Negative for respiratory distress or pain with movement Auscultation: Negative for rhonchi, wheezes or diminished lung sounds Cardio regular rate, regular rhythm, S1 normal heart sound, S2 normal heart sound and no murmurs Peripheral Pulses: pulses 2+ throughout GI normal to inspection, nondistended, normoactive bowel sounds, soft to palpation, non-distended and no masses GI Narrative: Mild diffuse tenderness. There is no rebound, rigidity, or pineal signs. No mass palpated. Back/Spine no CVA tenderness and no thoracic nor lumbar tenderness Extremity normal to inspection General Extremety ED: Negative for edema General Extremity: Negative for edema Neuro oriented x3, CN's II-XII intact bilaterally, no sensory deficits noted and gait normal Sensorium / Orientation: awake, alert, oriented to person, oriented to place and oriented to time Motor Exam: strength 5/5 throughout and strength abnormal Psych mental status grossly normal Skin no rashes or lesions noted and no wounds MDM MDM MDM Narrative Medical decision making narrative: Patient presents with vomiting and diarrhea and headache. Diffuse abdominal discomfort. Patient via protocol had lab work-up ordered by nursing staff before she was seen. I did order liter saline fluid bolus and Zofran 4 mg IV. She refused Toradol. She was given Bentyl. Suspect likely a viral gastroenteritis. CBC with differential obtained showed a white count of 9.0 with hemoglobin 13.6 and platelet count of 371. Chemistries unremarkable. LFTs were normal. hCG was negative and urinalysis was unremarkable. I do not feel patient requires any type of imaging. She will be discharged home with prescription for Bentyl and Zofran. She is to use Imodium as needed for the diarrhea if it persist. Advised to return if worsening pain, fever, dehydration, or condition should worsen anyway. Lab Data Labs: Laboratory Results - last 24 hr 06/11/23 06/11/23 18:40 19:30 WBC 9.0 RBC 5.15 Hgb 13.6 Hct 43.6 MCV 84.7 MCH 26.4 L MCHC 31.2 L RDW Std Deviation 40.4 RDW Coeff of Connie 13.1 Plt Count 371 MPV 9.0 Immature Gran % (Auto) 0.300 Neut % (Auto) 70.6 H Lymph % (Auto) 19.9 [place] % (Auto) 7.8 Eos % (Auto) 1.1 Baso % (Auto) 0.3 Absolute Neuts (auto) 6.3 Absolute Lymphs (auto) 1.78 Nucleated RBC % 0 Sodium 136 Potassium 3.4 L Chloride 106 Carbon Dioxide 27.0 Anion Gap 3 L BUN 9 Creatinine 0.88 Estim Creat Clear Calc 84.88 Est GFR (MDRD) Af Amer 97 Est GFR (MDRD) Non-Af 80 BUN/Creatinine Ratio 10.2 Glucose 104 Calcium 8.7 Total Bilirubin 0.30 AST 12 L ALT 27 Alkaline Phosphatase 87 Total Protein 7.4 Albumin 3.6 Globulin 3.8 Albumin/Globulin Ratio 0.9 Serum , Qual NEGATIVE Urine Color Yellow Urine Clarity Sl. Cloudy Urine pH 5.0 Ur Specific [place] 1.025 Urine Protein 30 H Urine Glucose (UA) Normal Urine Ketones Negative Urine Occult Blood 10 H Urine Nitrite Negative Urine Bilirubin Negative Urine Urobilinogen 1 H Ur Leukocyte Esterase 25 H Urine RBC 0 SEEN Urine WBC 0-5 SEEN Ur Squamous Epith Cells 0-5 SEEN Urine Bacteria 1+ Urine Mucus 1+ Urine Yeast RARE Discharge Plan Triage Chief Complaint: Abd Pain Other Complaint: Diarrhea ED Provider: Gregoria Mai Dx/Rx/DC Orders Clinical Impression: Viral gastroenteritis Instructions: ED Gastroenteritis, Viral (Adult) Prescriptions: New ondansetron [ondansetron] 4 mg tablet,disintegrating 4 mg PO Q8H PRN PRN (Reason: Nausea) Qty: 10 0RF dicyclomine 10 mg capsule 20 mg PO TIDAC Qty: 20 0RF No Action Excedrin Extra Strength 1 EACH tablet 1 ea PO DAILY PRN (Reason: Headache) ondansetron 4 mg tablet,disintegrating 4 mg PO Q8H PRN PRN (Reason: Nausea) Qty: 14 0RF meloxicam 15 mg tablet 15 mg PO DAILY Patient Comments: TAKE 1 TABLET BY MOUTH FOR 30 DAYS NEEDED, TAKE WITH FOOD prednisone 20 mg tablet 40 mg PO DAILY 5 Days Qty: 10 0RF Primary Care Provider: Care Physician,No Primary Referrals: Chip Downey MD [Med Staff - Active Staff] - 3-5 Days Care Physician,No Primary [Primary Care Provider] - Disposition Disposition: Home, Self Care
[2023-06-11] MEDS: Ondansetron 4 MG/2 ML Vial IV (19:29)
[2023-06-11] MEDS: 0.9% Normal Saline (1000mL) 1,000 ML 1000 ML IV (19:29)
[2023-06-11] MEDS: Dicyclomine 10 MG Capsule 20 MG PO (19:29)
[2023-06-11 19:41] LABS: Red Blood Cells-Urine 0 SEEN /hpf (0-5)
[2023-06-11 19:45] LABS: Color, Urine Yellow (Yellow); Glucose, Dipstick Normal (Normal); Ketone-Dipstick Negative (Negative); Leukocyte Esterase-Dipstick 25 /ul (Negative); Nitrite-Dipstick Negative (Negative); Occult Blood-Urine 10 /ul (Negative); Protein-Dipstick 30 mg/dl (Negative); Specific Gravity, Urine 1.025 (1.002-1.030); Urine Bilirubin Dipstick Negative (Negative); Urine Clarity Sl. Cloudy (Clear); Urine Urobilinogen 1 mg/dl (Normal)
[2023-06-11 19:52] LABS: Bacteria 1+ /hpf (None Seen); Mucous, Urine 1+ /hpf (<or=2+); Squamous Epithelial Cells - UA 0-5 SEEN /hpf (5-10); White Blood Cells 0-5 SEEN /hpf (0-5)
[2023-06-11 19:53] LABS: Yeast-Urine RARE /hpf (None Seen)
[2023-06-11 20:26] VITALS: BP 125/83; PULSE 80; RESP 15; O2SAT 100
[2023-06-11 20:28] VITALS: BP 125/83; PULSE 82; RESP 15; O2SAT 100
== END 2023-06-11 20:31 | disposition home or self-care (01) ==
PROVIDERS: Emergency Provider Emergency Medicine; Visit Provider Emergency Medicine
DX: A08.4 Viral intestinal infection, unspecified (principal); F17.210 Nicotine dependence, cigarettes, uncomplicated
CPT/HCPCS: 80053; 81001; 84703; 85025; 96361; 96374; 96375; 99283; J7030; A4216; J2405

== ENCOUNTER 2023-07-31 16:08 | Emergency (ER) | payer OTHER, SELFPAY ==
[2023-07-31 16:09] VITALS: BP 137/105; PULSE 100; RESP 18; TEMP 36.9; O2SAT 100; BMI 37.5
[2023-07-31 17:44] VITALS: O2SAT 98
--- OUTSIDE RECORDS SUMMARY | 2023-07-31 17:50 | XMS RPT_ITS | CCD ---
Author Name Unknown Address [address] [place] [address] Organization [facility] Care Team Providers Care Laborer [facility] Name Role Phone DEV NEWTON Unavailable Unavailable DEV NETWON Unavailable Unavailable LANA PRAJAPATI Unavailable Unavailable Lana Prajapati Primary Care Provider 1(10 31) Lana Prajapati Primary Care Provider 1(10 31) PAUL LOVE Primary Care Physician (33 [phone]) CHANTEL MEEHAN Attending PAUL Hurley Primary Care Unavailsrinivasan e Allergies Allergy Classification Reported Allergen(s) Allergy Type Date of Onset Reaction(s) Facility (3 sources) Amoxicillin; Translations: [amoxicillin] Drug Allergy 04-23-2019 Hiv, Unknown (qualifier value) [place] (3 sources) Amoxicillin / Clavulanate; Translations: [amoxicillin-cla vulanate] Drug Allergy 04-23-2019 [facility] Medications Current Medications Medication Drug Class(es) Dates Sig (Normalized) Sig (Original) etonogestrel 68 mg drug implant (3 sources) Progestin Start: 11-08-2021 End: 11-07-2024 etonogestrel (NEXPLANON) subdermal implant 68 mg Indications: Insertion of implantable subdermal contraceptive 1 Each by SUBDERMAL route as directed. 1 Each 0 11/08/2021 11/07/2024 Active Completed/Discontinued Medications Medication Drug Class(es) Dates Sig (Normalized) Sig (Original) meloxicam 15 mg oral tablet (1 source) Nonsteroidal Anti-inflammatory Drug Start: 07-17-2021 End: 08-16-2021 meloxicam 15 mg oral tablet Dose : 15 mg = 1 tab(s), Oral, qDay, PRN Pain, Take with food/milk and plenty of fluids. Do not take any other NSAIDs while on this medication., # 30 tab(s), 0 Refill(s), Pharmacy: [facility], 165.5, cm, 07/17/21 12:54:00 EST, Height,... Start Date: 07/17/21 Stop Date: 08/16/21 Status: Ordered Problems Active Problems Problem Classification Problem Date Documented Da te Episodic/Chronic Anxiety disorders (2 sources) Anxiety disorder; Translations: [Anxiety disorder, unspecified] Chronic Cardiac dysrhythmias (2 sources) Palpitations; Translations: [Palpitations] Episodic Contraceptive and procreative management (2 sources) Patient encounter status; Translations: [Encounter for initial prescription of implantable subdermal contraceptive] Episodic Genitourinary symptoms and ill-defined conditions (1 source) Increased frequency of urination; Translations: [Frequency of micturition] Episodic Headache; including migraine (1 source) Headache 09-30-2022 Episodic Malaise and fatigue (2 sources) Fatigue; Translations: [Other fatigue] Episodic Other female genital disorders (2 sources) Vaginal discharge 05-08-2020 Episodic Other hematologic conditions (1 source) H/O: blood disorder; Translations: [Personal history of diseases of the blood and blood-forming organs and certain disorders involving the immune mechanism] Episodic Other hematologic conditions (1 source) History of anemia 09-30-2022 Episodic Other lower respiratory disease (1 source) Dyspnea 09-30-2022 Episodic Other upper respiratory infections (1 source) Sinusitis 04-28-2019 Chronic Other upper respiratory infections (1 source) Sore throat symptom 04-28-2019 Episodic Unclassified (1 source) Unknown / UNK(Unknown) Onset: 02-13-2017 Unclassified (1 source) Patient encounter status 09-30-2022 Past or Other Problems Problem Classification Problem Date Documented Da te Episodic/Chronic Unclassified (1 source) DATING AND ANATOMY Onset: 02-13-2017 Results Test Name Value Interpretation Reference Range Facil ity Vital Signs Date Time Vital Sign Value Performing Clinician Faci lity 04-12-2022 17:29-0400 Body temperature 98.49 [degF] Antoinette Howard APRN.PRINT DESIGNER Work Phone: [place] 04-12-2022 17:29-0400 Body weight 101.15 kg Antoinette Howard APRN.PRINT DESIGNER Work Phone: [place] 04-12-2022 17:29-0400 Diastolic blood pressure 76 mm[Hg] Antoinette Howard APRN.PRINT DESIGNER Work Phone: [place] 04-12-2022 17:29-0400 Heart rate 102 /min Antoinette Howard APRN.PRINT DESIGNER Work Phone: [place] 04-12-2022 17:29-0400 Respiratory rate 18 /min Antoinette Howard APRN.PRINT DESIGNER Work Phone: [place] 04-12-2022 17:29-0400 SaO2% (BldA) [Mass fraction] 98 % Antoinette Howard APRN.PRINT DESIGNER Work Phone: [place] 04-12-2022 17:29-0400 Systolic blood pressure 128 mm[Hg] Antoinette Howard APRN.PRINT DESIGNER Work Phone: [place] 11-08-2021 13:04-0400 Body weight 101.61 kg Milana Howard MD Work Phone: [place] 11-08-2021 13:04-0400 Diastolic blood pressure 74 mm[Hg] Milana Howard MD Work Phone: [place] 11-08-2021 13:04-0400 Systolic blood pressure 118 mm[Hg] Milana Howard MD Work Phone: [place] Encounters Encounter Date Encounter Type Care Provider Facility Start: 09-30-2022 End: 10-01-2022 ambulatory CHANTEL MAST PI[employer] DELIVERY-PRINT DESIGNER Facility:B Start: 09-30-2022 End: 09-30-2022 Patient encounter procedure CHANTEL MAST [employer] DELIVERY-PRINT DESIGNER [facility] Start: 04-12-2022 End: 04-12-2022 Patient encounter procedure Antoinette Howard APRN.PRINT DESIGNER Work Phone: [facility] Procedures Date Procedure Procedure Detail Performing Clinician Start: 04-12-2022 Urnls dip stick/tabl et rgnt auto w/o microscopy Antoinette Howard PIZZA DELIVERY.PRINT DESIGNER Work Phone: Start: 11-08-2021 Urine test visual color cmprsn moes Milana Howard MD Work Phone: Start: 07-06-2017 section CHANTEL MAST [employer] DEL[employer] DESIGNER Start: 12-26-2006 Appendectomy CHANTEL MAS T PIZZ[employer] DELIVERY-PRINT DESIGNER Plan of Treatment Date Care Activity Detail Author Start: 10-18-2024 PAP TESTING PAP TESTING [place] Start: 04-04-2022 Influenza vaccination [place] Start: 2012 Urine microalbumin profile DTAP,TDAP,TD (1 - Tdap) [place] Start: 2011 HEPATITIS C SCREENING HEPATITIS C SCREENING [place] Start: 2011 HIV SCREENING HIV SCREENING [place] Start: 2005 Adult depression screening assessment DEPRESSION SCREENING [place] Start: 1998 COVID-19 VACCINE (1) COVID-19 VACCINE (1) [place] Start: 03-11-1994 COVID-19 VACCINE (#1) COVID-19 VACCINE (#1) [place] Start: 1993 HEPATITIS B (1 of 3 - 3-dose series) HEPATITIS B (1 of 3 - 3-dose series) [place] Bacteria identified in Urine by Culture URINE CULTURE Microbiology Routine Urinary frequency Ordered: 04/12/2022 [facility] Work Phone: Immunizations Immunization Date Immunization Notes Care Provider Fa cili 05-29-2022 influenza virus vacc ine, unspecified formulation CHANTEL MAST [employer]-PRINT DESIGNER [facility] 07-06-2017 measles/mumps/rubell a virus vaccine CHANTEL MAST [employer] DELIVERY-PRINT DESIGNER [facility] 01-19-2014 pneumococcal polysaccharide vaccine, 23 valent CHANTEL MAST [employer] DEL[employer]-PRINT DESIGNER [facility] 10-31-2009 meningococcal polysaccharide (groups A, C, Y and W-135) diphtheria toxoid conjugate vaccine (MCV4P) CHANTEL [facility] PIZZA DELIVERY-PRINT DESIGNER [facility] 10-31-2009 tetanus toxoid, redu royce diphtheria toxoid, and acellular pertussis vaccine, adsorbed CHANTEL MAST [employer] DEL[employer]-PRINT DESIGNER [facility] 03-08-1999 measles/mumps/rubell a virus vaccine CHANTEL MAST [employer] DELIV[employer]-PRINT DESIGNER [facility] 12-26-1994 measles/mumps/rubell a virus vaccine CHANTEL MAST [employer] DELIVERY-PRINT DESIGNER [facility] Payers Date Payer Category Payer Unknown [id number] 2020 Unknown [employer] P[employer] [id number] 2020-Present [phone] [address] [place] [address] PPO [id number] 2020 Unknown [employer] PPO [id number] 2020-Present [phone] [address] [place] [address] PPO [id number] 2014 Unknown [id number] 1993 Unknown [id number] Social History Date Type Detail Facility Start: 10-18-2021 End: 04-12-2022 Tobacco smoking status NHIS Ex-smoker [place] Start: 10-18-2021 End: 04-12-2022 Tobacco use and exposure Former smokeless tobacco user [place] Start: 1993 Sex Assigned At Not on file [facility] Start: 10-13-2021 End: 04-12-2022 Exposure to SARS-CoV-2 (event) Not sure [place] History of tobacco use Current smoker [facility] Start: 04-12-2022 Alcohol intake Lifetime non-d racheal (finding) [place] Tobacco Nicotine Use: Va ping Product in Last 90 Days. Type: Electronic Cigarettes (Vaping). [facility] Tobacco smoking status No Smokin g Status Entered [facility] Sex Assigned At Female [facility] Clinical Notes 10-18-2021 to 04-12-2022 Antoinette Howard APRN.PRINT DESIGNER - 04/12/2022 5:40 PM EDTPatient Jairo Howard MD - 11/08/2021 1:02 PM EDT Note Date & Type Note Facility 04-12-2022 Note HNO ID: [id number] Author: Antoinette Howard APRN.PRINT DESIGNER Service: ? Author Type: Nurse Practitioner Type: Progress Notes Filed: 04/12/2022 6:05 PM Note Text: CC: Patient presents with: Urinary Problem: Pt reported urinary frequency, burning, x1 wk, reported menses intermittent x2 mths with Nexplanon. HPI Marlo Palmer is a 26 year old female who presents with complaint of possible UTI. These symptoms have been present for 7 days. Associated symptoms: burning, frequency, and foul smelling urine Denies: pressure, fever, chills, and sweats Treatments: nothing The ROS was otherwise negative. PMH, Medications, labs, allergies, and recent past visits with PCP were reviewed and updated as able. PHYSICAL EXAM: BP 128/76 Pulse 102 Temp 36.9 ?C (98.5 ?F) Resp 18 Wt 101.2 kg (223 lb) LMP 02/15/2022 (Within Days) SpO2 98% BMI 37.11 kg/m? General: Well appearing and alert CV: Regular rate and rhythm without obvious murmur Lungs: clear to auscultation bilaterally Back: straight and symmetric Abdomen: soft, nontender, nondistended No past medical history on file. PAST SURGICAL HISTORY Procedure Laterality Date APPENDECTOMY SECTION HX 07/06/2017 ALLERGIES Amoxicillin and Augmentin [Amoxicillin-Pot Clavulanate] MEDICATIONS nitrofurantoin monohydrate and macrocrystal (MACROBID) 100 mg capsule Take 1 capsule by mouth twice daily for 5 days. etonogestrel (NEXPLANON) subdermal implant 68 mg 1 Each by SUBDERMAL route as directed. FAMILY HISTORY Problem Relation Age of Onset Asthma Mother Depression Father Pancreatitis Father Anxiety disorder Father Aneurysm Maternal Grandmother Brain Cancer Paternal Grandmother Lung Cancer Paternal Grandmother Social History Tobacco Use Smoking status: Former Smokeless tobacco: Former Substance Use Topics Alcohol use: Never Drug use: Never ASSESSMENT/PLAN: 1. Urinary frequency - ICD9: 788.41, ICD10: R35.0 acute - Send urine for culture - Begin treatment with Macrobid 100 mg BID for 5 days - UA DIP, URINE (POC) - URINE CULTURE Prescription instructions reviewed with patient as applicable. Potential red flag symptoms discussed with the patient. Reviewed appropriate action plan to take if red flag symptoms occur. Patient agreeable to treatment plan. Antoinette Howard APRN.[facility] 04-12-2022 History of Presen t illness Narrative CC: Patient presents with: Urinary Problem: Pt reported urinary frequency, burning, x1 wk, reported menses intermittent x2 mths with Nexplanon. HPI Marlo Palmer is a 26 year old female who presents with complaint of possible UTI. These symptoms have been present for 7 days. Associated symptoms: burning, frequency, and foul smelling urine Denies: pressure, fever, chills, and sweats Treatments: nothing The ROS was otherwise negative. PMH, Medications, labs, allergies, and recent past visits with PCP were reviewed and updated as able. PHYSICAL EXAM: BP 128/76 Pulse 102 Temp 36.9 C (98.5 F) Resp 18 Wt 101.2 kg (223 lb) LMP 02/15/2022 (Within Days) SpO2 98% BMI 37.11 kg/m General: Well appearing and alert CV: Regular rate and rhythm without obvious murmur Lungs: clear to auscultation bilaterally Back: straight and symmetric Abdomen: soft, nontender, nondistended No past medical history on file. PAST SURGICAL HISTORY Procedure Laterality Date APPENDECTOMY SECTION HX 07/06/2017 ALLERGIES Amoxicillin and Augmentin [Amoxicillin-Pot Clavulanate] MEDICATIONS nitrofurantoin monohydrate and macrocrystal (MACROBID) 100 mg capsule Take 1 capsule by mouth twice daily for 5 days. etonogestrel (NEXPLANON) subdermal implant 68 mg 1 Each by SUBDERMAL route as directed. FAMILY HISTORY Problem Relation Age of Onset Asthma Mother Depression Father Pancreatitis Father Anxiety disorder Father Aneurysm Maternal Grandmother Brain Cancer Paternal Grandmother Lung Cancer Paternal Grandmother Social History Tobacco Use Smoking status: Former Smokeless tobacco: Former Substance Use Topics Alcohol use: Never Drug use: Never ASSESSMENT/PLAN: 1. Urinary frequency - ICD9: 788.41, ICD10: R35.0 acute - Send urine for culture - Begin treatment with Macrobid 100 mg BID for 5 days - UA DIP, URINE (POC) - URINE CULTURE Prescription instructions reviewed with patient as applicable. Potential red flag symptoms discussed with the patient. Reviewed appropriate action plan to take if red flag symptoms occur. Patient agreeable to treatment plan. Antoinette Howard APRN.[facility] documented in this encounter [place] 11-08-2021 Note HNO ID: [id number] Author: Milana Howard MD Service: ? Author Type: Physician Type: Progress Notes Filed: 11/08/2021 1:31 PM Note Text: Marlo is a 26 year old patient who presents for Nexplanon insertion. Patient's last menstrual period was 04/15/2019. VITALS: LMP 04/15/2019 test: negative Nexplanon lot #: [id number] Exp date: 12/14/2023 UNIVERSAL PROTOCOL / SAFETY CHECKLIST Procedure to be Performed: Nexplanon insertion Sign In: A Moment of CARE was completed. Personnel directly involved with the procedure wore the appropriate PPE (Personal Protective Equipment). Patient/Surrogate Stated/Verified: PATIENT VERIFIED(optional for EMERGENT procedures): Patient name, Date of , Relevant allergies and The intended procedure Time Out Communication: Intended patient and procedure match the source documents. Consent documented and matches the intended procedure. Implant(s) inserted: Correct implant(s) confirmed including size and side. and Expiration date(s) reviewed. Sign Out: SIGN OUT (optional for EMERGENT procedures): No specimen collected. All instruments, equipment, possible retained foreign bodies accounted for. Post-procedure follow-up management communicated and Plan of Care Visit completed when applicable. Milana Howard MD TECHNIQUE: Patient placed in supine position with left) bent at the elbow and placed over the head. Skin cleansed with betadine. 3mL of 1% lidocaine with 1:100,000 epi injected subQ along insertion site. Nexplanon indra inserted under sterile technique. After insertion by the provider, the indra was palpable under the skin by both patient and provider. Steristrips and sterile pressure dressing applied. AANDP: Nexplanon inserted without complications. Patient user card was filled out and given to the patient. The patient was instructed to remove the dressing after 24 hours. Advised to use backup contraception for 7 days. Milana Howard MD [facility] 11-08-2021 Instructions Emma Berger Ma - 11/08/2021 1:03 PM EDT NEXPLANON PATIENT EDUCATION You may remove dressing in 24 hours. Expect some bruising around insertion site. You may take over the counter pain medication (i.e. Tylenol, motrin, advil, etc) if you have discomfort. Call your provider with excessive bruising or pain. Continue to use condoms for STD prevention. You should use backup contraception for 7 days to prevent . documented in this encounter [place] 11-08-2021 History of Presen t illness Narrative Marlo is a 26 year old patient who presents for Nexplanon insertion. Patient's last menstrual period was 04/15/2019. VITALS: LMP 04/15/2019 test: negative Nexplanon lot #: [id number] Exp date: 12/14/2023 UNIVERSAL PROTOCOL / SAFETY CHECKLIST Procedure to be Performed: Nexplanon insertion Sign In: A Moment of CARE was completed. Personnel directly involved with the procedure wore the appropriate PPE (Personal Protective Equipment). Patient/Surrogate Stated/Verified: PATIENT VERIFIED(optional for EMERGENT procedures): Patient name, Date of , Relevant allergies and The intended procedure Time Out Communication: Intended patient and procedure match the source documents. Consent documented and matches the intended procedure. Implant(s) inserted: Correct implant(s) confirmed including size and side. and Expiration date(s) reviewed. Sign Out: SIGN OUT (optional for EMERGENT procedures): No specimen collected. All instruments, equipment, possible retained foreign bodies accounted for. Post-procedure follow-up management communicated and Plan of Care Visit completed when applicable. Milana Howard MD TECHNIQUE: Patient placed in supine position with left) bent at the elbow and placed over the head. Skin cleansed with betadine. 3mL of 1% lidocaine with 1:100,000 epi injected subQ along insertion site. Nexplanon indra inserted under sterile technique. After insertion by the provider, the indra was palpable under the skin by both patient and provider. Steristrips and sterile pressure dressing applied. A&P: Nexplanon inserted without complications. Patient user card was filled out and given to the patient. The patient was instructed to remove the dressing after 24 hours. Advised to use backup contraception for 7 days. Milana Howard MD documented in this encounter [place] 10-18-2021 Note HNO ID: [id number] Author: Yolanda Be APRN.CNM Service: ? Author Type: Medical Detailist Type: Progress Notes Filed: 10/18/2021 11:20 AM Note Text: Marlo is a 26 year old new to clinic patient who presents for an annual gynecologic exam without complaints. Reports miscarriage last month and had to have [facility]. Denies DANDC. Patient reported being 10 weeks gestation. She would like to discuss control options. Menses: cycles every 27-30 days and 3 days of flow. Contraception: none HPV vaccine: Yes Last Pap: normal 4 years- after of son HPV: negative History of abnormal pap: No Last mammogram: never Sexually active: Yes History of STDS: GC Time with current partner: 10 years Pain with intercourse: Yes occasional Postcoital bleeding: No Diet: Regular Seatbelt use: Yes OB History No obstetric history on file. Patient reports - Emergent C/S at [facility]. [facility]. Son has cardiac issues- non verbal as well [employer] History LMP: 04/15/2019, Having periods Age at Menarche: Age at First : Age at Menopause: [employer] Under[employer] History Comments: Sexual Activity: No sexual activity data on record; No partner data on record Contraception: No contraception data on record No past medical history on file.No past surgical history on file.No family history on file.SOCIAL HISTORY Social History Tobacco Use - Smoking status: Current Every Day Smoker - Smokeless tobacco: Former User Substance Use Topics - Alcohol use: Not on file - Drug use: Not on file REVIEW OF SYSTEMS Abdomen: No abdominal pain, nausea, vomiting, diarrhea, or constipation. No bloating, early satiety, indigestion, or increased flatulence. Bladder: No dysuria, gross hematuria, urinary frequency, urinary urgency, or incontinence. Breast: No breast lumps, nipple d/c, overlying skin changes, redness or skin retraction. Allergies and current medication updated:Yes EXAM: BP 114/72 Ht 5' 5 (1.65m) Wt 231 lb (104.8kg) LMP 04/15/2019 BMI 38.44 kg/(m2). GENERAL: pleasant, female in no apparent distress HEENT: Normocephalic, atraumatic, mucus membranes moist and no lesions NECK: Supple and full range of motion DERMATOLOGY: Normal and without lesions BREAST: soft, non-tender, symmetric, no dominant mass, normal nipple-areolar complex, no lymphadenopathy and no nipple discharge CHEST: Normal inspiratory effort ABDOMEN: soft and non-tender PELVIC: external genitalia normal, normal Bartholin's glands, urethra, [place]'s glands, no vulvar lesions, no cervical lesions, good vaginal support, physiologic discharge present, normal appearing perineal body and perianal region BIMANUAL: uterus normal size, shape and consistency, no adnexal masses, non-tender and no cervical motion tenderness RECTOVAGINAL: deferred. NEURO: alert and oriented x3,exam grossly non-focal EXTREMITIES: normal ASSESSMENT/PLAN: 1) Health maintenance: Pap done with reflex HPV. Nutrition, exercise and routine health maintenance exams reviewed. HPV vaccine: completed series 2) Contraception: Nexplanon- patient to schedule appointment for insertion. 3) STD screening: Accepted STD check for Gonorrhea and Chlamydia. 4) Follow up one year or sooner as needed Yolanda Be APRN.NIKKY [facility] Evaluation + Plan note Future Appointments Appointment Date:11/12/2022 10:30:00 AM Scheduled Provider:CHANTEL SINGH Location:[facility] Appointment Type:PC OV [facility] documented in this encounter [place]* Diagnosis Urinary frequency- Primary documented in this encounter [facility] course Narrative No data available for this section [facility] Hospital Discharge instructions No data available for this section [facility] Progress note No data available for this section [facility] Reason for referral (narrative)* Outpatient Procedure (Routine) - Pending Review Specialty Diagnoses / Procedures Referred By Louie whiting Referred To Contact [facility] Diagnoses Insertion of implantable subdermal contraceptive Procedures NEXPLANON INSERTION ETONOGESTREL IMPLANT SYSTEM INSERT DRUG IMPLANT DEVICE Milana Howard MD [facility] [place] [address] [address] [place] [address] [facility] [address] [place] [address] Referral ID Status Reason Start Date Expiration Date Visits Requested Visits Authorized [id number] Pending Review Auto-Generat ed Referral 11/08/2021 11/08/2022 1 1 [place] Summary Purpose Family History No Family History Records FoundNo Family History Records FoundNo Family History Records Found Advance Directives No Advanced Directives Records FoundNo Advanced Directives Records FoundNo Advanced Directives Records Found Medications Administered Section Inactive Administered Medications - up to 3 most recent administrations Medication Order MAR Action Action Date Dose Rate Site etonogestrel subdermal implant 68 mg (NEXPLANON) 68 mg, SUBDERMAL, ONCE (UP TO 30 DAYS AMB), 1 dose, On [place] 11/08/21 at 1330, Hazardous Potential Reproductive Risk Drug: Use appropriate PPE. Must be inserted subdermally in the upper arm by a trained healthcare provider. Given 11/08/2021 1:29 PM EDT 68 mg Arm, Left Additional Source Comments INFORMATION SOURCE (unrecogn ized section and content) DATE CREATED AUTHOR AUTHOR'S ORGANIZ ATION 04/14/2022 [facility] DATE CREATED AUTHOR AUTHOR'S ORGANIZ ATION 10/01/2022 [facility] ([place]) Source Comments (unrecognize d section and content) In the event this informatio n is protected by the Federal Confidentiality of Alcohol and Drug Abuse Patient Records regulations: The Federal rules restrict any use of the information to criminally investigate or prosecute any alcohol or drug abuse patient.[place] the event this information is protected by the Federal Confidentiality of Alcohol and Drug Abuse Patient Records regulations: The Federal rules restrict any use of the information to criminally investigate or prosecute any alcohol or drug abuse patient.[place] Reason for Visit (unrecogniz ed section and content) Specialty Diagnoses / Procedures Referred By Louie whiting Referred To Contact [facility] Diagnoses Encounter for initial prescription of Nexplanon Procedures NEXPLANON INSERTION ETONOGESTREL IMPLANT SYSTEM INSERT DRUG IMPLANT DEVICE Yolanda Be APRN.NIKKY [address] [place] [address] [facility] [address] [place] [address] Referral ID Status Reason Start Date Expiration Date V isits Requested Visits Authorized [id number] Authorized 08/04/2021 08/03/2022 2 2 Reason Comments Urinary Problem Pt reported urinary frequency, burning, x1 wk, reported menses intermittent x2 mths with Nexplanon. Care Teams (unrecognized sec tion and content) [employer] Relationship Specialty Start Date End Date Lana [address] [place] [address] PCP - General Family Practice 04/23/19 Care Team (unrecognized sect ion and content) Care Team Personnel Name: PAUL MRAIE APRN-PRINT DESIGNER Position: P4 Advanced [employer] Mixer Machine Member Role: Primary Care Physician Address: Address: [address] [place] [address] Physicians [place], [place] [address] Care Team Related Persons Name: JULITO MOYER Address: [address] [phone] Name: DIAMOND PALMER Name: DIAMOND PALMER Address: Home [address] [place] [phone] Address: [address] [phone] Name: DIAMOND PALMER R Address: Home [address] [place] [phone] Name: MELLISA PALMER Name: MELLISA PALMER FOR RECORDS PERTAINING TO PATIENTS WHO ARE OR HAVE BEEN ENROLLED IN A CHEMICAL DEPENDENCY/SUBSTANCEABUSE PROGRAM, SOME INFORMATION MAY BE OMITTED. This clinical summary was aggregated from multiple sources. Caution should be exercised in using it in the provision of clinical care. This summary normalizes information from multiple sources, and as a consequence, information in this document may materially change the coding, format and clinical context of patient data. In addition, data may be omitted in some cases. CLINICAL DECISIONS SHOULD BE BASED ON THE PRIMARY CLINICAL RECORDS. [employer] provides no warranty or guarantee of the accuracy or completeness of information in this document.
--- NOTE | 2023-07-31 18:15 | EDS_ITS ---
HPI HPI - URI History of Present Illness Chief Complaint: Cough Informant: patient Narrative Narrative: Patient with cold symptoms, she is on day #4. Started with a sore throat, that is improved now but woke up feeling worse with cough, now feels like it is in her upper chest and feels like there is mucus there that she cannot get out. No dyspnea. No fevers or chills. Some nasal congestion no purulent rhinorrhea or earache. No GI symptoms. Not an asthmatic. Works [employer] with the public. States she was already tested the day after the origin of the illness and is negative for COVID and influenza. Also was tested for strep and was negative for that according to the patient. ROS ROS ED Constitutional Constitutional ED: Denies chills or fever(s) ENT ENT ED: Reports nasal congestion and sore throat; Denies ear pain or rhinorrhea Cardiovascular Cardiovascular: Denies chest pain or palpitations Respiratory/Chest Respiratory/Chest: Reports cough; Denies dyspnea Gastrointestinal Gastrointestinal: Denies abdominal pain, diarrhea, nausea or vomiting Genitourinary Genitourinary ED: Denies dysuria or hematuria Musculoskeletal Musculoskeletal: Denies myalgias or neck pain Integumentary Denies abscess or rash Neurologic Neurologic: Denies headache(s), paresthesias or weakness Psychiatric Psychiatric: Denies depression or suicidal thoughts Endocrine Endocrinology: Denies polydipsia or polyuria [facility] Medical History Left ankle pain Osteochondritis dissecans of left ankle Home Medications mojliua-lsamstmsirybw-hitxwhmj 250 mg-250 mg-65 mg tablet (Excedrin Extra Strength) 1 ea PO DAILY PRN Headache 10/09/18 [History Last Taken Unknown] meloxicam 15 mg tablet 15 mg PO DAILY 07/20/21 [History Last Taken Unknown] ondansetron 4 mg disintegrating tablet 4 mg PO Q8H PRN PRN Nausea #14 tabs 07/20/21 [Rx Last Taken Unknown] prednisone 20 mg tablet 40 mg (2 x 20 mg) PO DAILY 5 days #10 tabs 08/18/22 [Rx Last Taken Unknown] dicyclomine 10 mg capsule 20 mg (2 x 10 mg) PO TIDAC #20 CAPSULES 06/11/23 [Rx Last Taken Unknown] ondansetron 4 mg disintegrating tablet 4 mg PO Q8H PRN PRN Nausea #10 tabs 06/11/23 [Rx Last Taken Unknown] albuterol sulfate 90 mcg/actuation aerosol inhaler (Ventolin HFA) 1 - 2 puff inhalation Q4H PRN PRN Wheezing ##1 07/31/23 [Rx Last Taken Unknown] Allergy/AdvReac Type Severity Reaction Status Date / Time amoxicillin [From Augmentin] Allergy Rash Verified 07/31/23 16:08 clavulanic acid Allergy Rash Verified 07/31/23 16:08 [From Augmentin] Surgical History Hx of appendectomy Social History Smoking Status: Current every day smoker tobacco type: cigarettes EXAM Physical Exam Const Vital Signs: 07/31/23 16:09 07/31/23 17:44 Temperature 98.5 F Temperature Source Temporal Pulse Rate 100 Respiratory Rate 18 Respiratory Effort Normal Non-Labored Respiratory Depth Normal Respiratory Pattern Normal Blood Pressure 137/105 H Blood Pressure Mean 115 Pulse Ox 100 Oxygen Delivery Method Room Air Room Air Positive well nourished, well developed and obese General Appearance ED: well developed and NAD Nutritional Appearance: obese HEENT Reports moist mucous membranes normocephalic and atraumatic Throat: Negative for posterior oropharynx abnormal Eyes PERRL and EOMs intact bilaterally Neck no lymphadenopathy, supple and no meningeal signs Resp normal respiratory effort and clear to auscultation bilaterally Cardio no murmurs Rate: regular rate Rhythm: regular rhythm Neuro oriented x3, CN's II-XII intact bilaterally and no sensory deficits noted Sensorium / Orientation: alert Motor Exam: strength 5/5 throughout Skin Lesions: no lesions Rashes: no rashes MDM MDM MDM Narrative Medical decision making narrative: Chest x-ray obtained due to the patient's symptoms, 2 views of my interpretation negative for pneumonia. This is all consistent with viral bronchitis. No need to repeat the test that she already had a my opinion. Her pulse ox is 100% on room air and the rest of her vital signs are noted. Supportive care advised, no antibiotics indicated which we discussed. Supportive care and I will prescribe her an albuterol MDI to use as needed for bronchospasm. Discharge Plan Triage Chief Complaint: Cough ED Provider: Torito Lynn Dx/Rx/DC Orders Clinical Impression: Acute bronchitis with bronchospasm Instructions: ED Bronchitis, No Antibiotic (Adult) Prescriptions: New albuterol sulfate [Ventolin HFA] 90 mcg/actuation HFA aerosol inhaler 1 - 2 puff inhalation Q4H PRN PRN (Reason: Wheezing) Qty: 1 0RF No Action Excedrin Extra Strength 1 EACH tablet 1 ea PO DAILY PRN (Reason: Headache) ondansetron 4 mg tablet,disintegrating 4 mg PO Q8H PRN PRN (Reason: Nausea) Qty: 14 0RF meloxicam 15 mg tablet 15 mg PO DAILY Patient Comments: TAKE 1 TABLET BY MOUTH FOR 30 DAYS NEEDED, TAKE WITH FOOD prednisone 20 mg tablet 40 mg PO DAILY 5 Days Qty: 10 0RF ondansetron [ondansetron] 4 mg tablet,disintegrating 4 mg PO Q8H PRN PRN (Reason: Nausea) Qty: 10 0RF dicyclomine 10 mg capsule 20 mg PO TIDAC Qty: 20 0RF Primary Care Provider: Care Physician,No Primary Referrals: Rohini Frausto [Non-Staff] - 10-14 Days if not better Care Physician,No Primary [Primary Care Provider] - Activity Restrictions/Additional Instructions: The albuterol inhaler that is prescribed to you is typically for asthmatics, but it may help with coughing fits when you have acute bronchitis such as in your case. You may also use this along with cough/flu medications ihlk-mwd-dqyuhvk for your symptoms which we also recommend in addition to staying hydrated. Using a coolmist vaporizer at night may help loosen some of the phlegm and make it easier to expectorate. Disposition Disposition: Home, Self Care
--- NOTE | 2023-07-31 18:20 | RAD_ITS ---
INDICATION: cough, cp EXAMINATION/TECHNIQUE: X-RAY - XR Chest 2 Views COMPARISON: None. FINDINGS: The lungs are clear. The cardiomediastinal silhouette is unremarkable. No pleural effusion or pneumothorax. No acute osseous abnormalities. RAD/Chest PA and Lateral IMPRESSION: No acute radiographic abnormalities. Electronically Signed: Chet Gallegos MD at 18:55 EST ,
[2023-07-31 18:53] VITALS: PULSE 65; RESP 19; O2SAT 96
== END 2023-07-31 18:53 | disposition home or self-care (01) ==
PROVIDERS: Emergency Provider Emergency Medicine; Visit Provider Emergency Medicine
DX: J20.9 Acute bronchitis, unspecified (principal); F17.210 Nicotine dependence, cigarettes, uncomplicated; J02.9 Acute pharyngitis, unspecified; E66.9 Obesity, unspecified
CPT/HCPCS: 71046; 99282

== ENCOUNTER 2023-10-19 19:24 | Emergency (ER) | payer OTHER, SELFPAY ==
[2023-10-19 19:25] VITALS: BP 128/100; PULSE 100; RESP 16; TEMP 36.6; O2SAT 100; BMI 38.6
--- NOTE | 2023-10-19 19:45 | RAD_ITS ---
STUDY: X-RAY - LEFT HAND, ATTENTION FIFTH FINGER REASON FOR EXAM: Female, 28 years old. smashed finger in safe at work, swelling, laceration TECHNIQUE: 3 view(s) of the finger were obtained. COMPARISON: None. FINDINGS: Normal metacarpal head. Normal metacarpophalangeal joint. Normal proximal phalanx. Normal middle phalanx. Normal distal phalanx. Normal proximal interphalangeal joint. Normal distal interphalangeal joint. RAD/Finger(s) Min 2 Views IMPRESSION: Normal x-ray examination of the finger. Electronically Signed: Addi Srivastava MD at 20:00 EDT ,
[2023-10-19] MEDS: Diphth,Pertuss(Acell),Tet Vac 0.5 ML Vial IM (19:52)
[2023-10-19] MEDS: Lidocaine 1% (20 ml mdv) 20 ML Vial INFILT (19:53)
--- NOTE | 2023-10-19 20:26 | EX.ED.UPPERE ---
HPI History of Present Illness Chief Complaint: Upper Extremity Injury Informant: patient Narrative Narrative: Very pleasant 28-year-old female got her left little finger crushed by a door from a safe while at work. She notes laceration over the volar aspect possibly loosening of the nail. She states that the finger feels rather numb Tetanus Immunization: Unknown [facility] Medical History Left ankle pain Osteochondritis dissecans of left ankle Home Medications [id number]-hzsezmatklymn-xylpifxg 250 mg-250 mg-65 mg tablet (Excedrin Extra Strength) 1 ea PO DAILY PRN Headache 10/09/18 [History Last Taken Unknown] meloxicam 15 mg tablet 15 mg PO DAILY 07/20/21 [History Last Taken Unknown] ondansetron 4 mg disintegrating tablet 4 mg PO Q8H PRN PRN Nausea #14 tabs 07/20/21 [Rx Last Taken Unknown] prednisone 20 mg tablet 40 mg (2 x 20 mg) PO DAILY 5 days #10 tabs 08/18/22 [Rx Last Taken Unknown] dicyclomine 10 mg capsule 20 mg (2 x 10 mg) PO TIDAC #20 CAPSULES 06/11/23 [Rx Last Taken Unknown] ondansetron 4 mg disintegrating tablet 4 mg PO Q8H PRN PRN Nausea #10 tabs 06/11/23 [Rx Last Taken Unknown] albuterol sulfate 90 mcg/actuation aerosol inhaler (Ventolin HFA) 1 - 2 puff inhalation Q4H PRN PRN Wheezing ##1 07/31/23 [Rx Last Taken Unknown] Allergy/AdvReac Type Severity Reaction Status Date / Time amoxicillin [From Augmentin] Allergy Rash Verified 10/19/23 19:29 clavulanic acid Allergy Rash Verified 10/19/23 19:29 [From Augmentin] Surgical History Hx of appendectomy Social History Smoking Status: Current every day smoker tobacco type: cigarettes ROS ROS ED Constitutional Constitutional ED: Denies chills or weight loss Eyes Eyes: Denies change in vision or diplopia ENT ENT ED: Denies ear pain, rhinorrhea or sore throat Cardiovascular Cardiovascular: Denies chest pain, orthopnea, palpitations or racing heartbeat Respiratory/Chest Respiratory/Chest: Denies cough, dyspnea or orthopnea Gastrointestinal Gastrointestinal: Denies abdominal pain, diarrhea, nausea or vomiting Genitourinary Genitourinary ED: Denies dysuria, hematuria or urinary frequency Musculoskeletal Musculoskeletal: Reports other Details: See history of present illness ; Denies arthralgias or myalgias Integumentary Reports other Details: Finger laceration ; Denies abscess or rash Neurologic Neurologic: Denies headache(s) or weakness Psychiatric Psychiatric: Denies anxiety, depression, suicidal ideation or suicidal thoughts Endocrine Endocrinology: Denies polydipsia, polyphagia or polyuria Allergic/Immunologic Allergic/Immunologic ED: Denies mouth swelling, tongue swelling or urticaria EXAM Physical Exam Const Vital Signs: 10/19/23 19:25 Temperature 97.8 F Temperature Source Temporal Pulse Rate 100 Respiratory Rate 16 Blood Pressure 128/100 H Blood Pressure Mean 109 Pulse Ox 100 Oxygen Delivery Method Room Air Positive well nourished and well developed General Appearance ED: well developed HEENT Reports normocephalic, head/scalp atraumatic and moist mucous membranes Eyes PERRL and EOMs intact bilaterally Neck no lymphadenopathy, supple and no JVD Resp normal respiratory effort and clear to auscultation bilaterally Cardio regular rate, regular rhythm and no murmurs GI normal to inspection, nondistended, normoactive bowel sounds and non-tender Palpation: soft Back/Spine no CVA tenderness and normal ROM Extremity Extremity Narrative: 1 cm volar laceration to the left little finger over the DIP joint region. There is minor loosening of the nail proximally with some minor blood along the cuticle. It is however still intact and I do not appreciate a subungual hematoma. General Extremety ED: Negative for edema General Extremity: Negative for edema Neuro oriented x3 and CN's II-XII intact bilaterally Sensorium / Orientation: alert Motor Exam: strength 5/5 throughout Psych mental status grossly normal Mood & Affect: Negative for depressed or tearful Skin no rashes or lesions noted and no wounds MDM MDM MDM Narrative Medical decision making narrative: My independent interpretation of the plain films of the left little finger is no acute fracture. Wound was locally anesthetized using 1% lidocaine washed with Shur-Clens explored and then closed. I do not believe at this point I feel strongly that he to remove the nail as there is a good chance that it is still viable and will survive without invasive treatment. Would recommend conservative care at this point. Stitches will be need to be removed in 5 to 7 days. Discharge Plan Triage Chief Complaint: Upper Extremity Injury ED Provider: Messi Ortega Dx/Rx/DC Orders Clinical Impression: Crushing injury of left little finger, Finger laceration, Fingernail injury Instructions: ED Crush Injury, Hand, ED Laceration, All Closures Prescriptions: No Action Excedrin Extra Strength 1 EACH tablet 1 ea PO DAILY PRN (Reason: Headache) ondansetron 4 mg tablet,disintegrating 4 mg PO Q8H PRN PRN (Reason: Nausea) Qty: 14 0RF meloxicam 15 mg tablet 15 mg PO DAILY Patient Comments: TAKE 1 TABLET BY MOUTH FOR 30 DAYS NEEDED, TAKE WITH FOOD prednisone 20 mg tablet 40 mg PO DAILY 5 Days Qty: 10 0RF albuterol sulfate [Ventolin HFA] 90 mcg/actuation HFA aerosol inhaler 1 - 2 puff inhalation Q4H PRN PRN (Reason: Wheezing) Qty: 1 0RF ondansetron [ondansetron] 4 mg tablet,disintegrating 4 mg PO Q8H PRN PRN (Reason: Nausea) Qty: 10 0RF dicyclomine 10 mg capsule 20 mg PO TIDAC Qty: 20 0RF Primary Care Provider: Care Physician,No Primary Referrals: Care Physician,No Primary [Primary Care Provider] - [facility] [Non-Staff] - 7 Days for suture removal Disposition Disposition: Home, Self Care
[2023-10-19 21:22] VITALS: BP 124/79; PULSE 94; RESP 16; TEMP 36.6; O2SAT 100
== END 2023-10-19 21:26 | disposition home or self-care (01) ==
PROVIDERS: Emergency Provider Emergency Medicine; Visit Provider Emergency Medicine
DX: S61.317A Laceration without foreign body of left little finger with damage to nail, initial encounter (principal); F17.210 Nicotine dependence, cigarettes, uncomplicated; W23.2XXA Caught, crushed, jammed or pinched between a moving and stationary object, initial encounter; Y99.0 Civilian activity done for income or pay; Y92.89 Other specified places as the place of occurrence of the external cause; Z90.49 Acquired absence of other specified parts of digestive tract
CPT/HCPCS: 12001; 73140; 90471; 90715; 99284

== ENCOUNTER 2023-12-18 11:13 | Emergency (ER) | payer OTHER, SELFPAY ==
[2023-12-18 11:14] VITALS: BP 123/103; PULSE 108; RESP 20; TEMP 37.1; O2SAT 99; BMI 38.0
[2023-12-18] MEDS: 0.9% Normal Saline (1000mL) 1,000 ML 999 ML IV (12:06)
[2023-12-18] MEDS: DiphenhydrAMINE 50 MG/ML Syringe 25 MG IV (12:06)
[2023-12-18] MEDS: Ketorolac 15 MG/ML Vial IV (12:06)
[2023-12-18 13:14] VITALS: BP 115/92; PULSE 91; RESP 16; O2SAT 98
--- NOTE | 2023-12-18 14:15 | EDS_ITS ---
HPI History of Present Illness Chief Complaint: General Illness Narrative Narrative: 28-year-old female presenting with headache, fever, chills, myalgias. Is been ongoing on for couple of days. She admits to nausea/vomiting. She does not have a thermometer at home but she said she felt like she had a fever. She has some mild coughing but not producing sputum. PFSH PFS Medical History Osteochondritis dissecans of left ankle Left ankle pain Home Medications ?Medication ?Instructions ?Recorded ?Last Taken ?Type uzunyum-axjyuvcbeiosr-ojtlmvnd 250 1 ea PO DAILY PRN Headache 10/09/18 Unknown History mg-250 mg-65 mg tablet (Excedrin Extra Strength) albuterol sulfate 90 mcg/actuation 1 - 2 puff inhalation Q4H PRN PRN 07/31/23 Unknown Rx aerosol inhaler (Ventolin HFA) Wheezing ##1 ondansetron 4 mg disintegrating 4 mg PO Q8H PRN PRN Nausea #14 tabs 12/18/23 Unknown Rx tablet triamcinolone acetonide 0.1 % 1 applic topical BID 12/18/23 Unknown History topical cream Allergy/AdvReac Type Severity Reaction Status Date / Time amoxicillin (From Augmentin) Allergy Rash Verified 12/18/23 11:14 clavulanic acid (From Allergy Rash Verified 12/18/23 11:14 Augmentin) metoclopramide (From Reglan) AdvReac Intermediate Other Verified 12/18/23 12:05 Surgical History Hx of appendectomy Social History Smoking Status: Current every day smoker tobacco type: e-cigarettes ROS ROS ED Constitutional Constitutional ED: Reports chills and fever(s); Denies sweats Eyes Eyes: Denies blurry vision or change in vision ENT ENT ED: Denies ear pain or sore throat Cardiovascular Cardiovascular: Denies chest pain, palpitations or racing heartbeat Respiratory/Chest Respiratory/Chest: Reports cough; Denies dyspnea or sputum Gastrointestinal Gastrointestinal: Reports nausea and vomiting; Denies abdominal pain, constipation or diarrhea Genitourinary Genitourinary ED: Denies dysuria, hematuria or urinary frequency Musculoskeletal Musculoskeletal: Denies arthralgias, myalgias or neck pain Integumentary Denies abscess, Abrasions or rash Neurologic Neurologic: Denies headache(s), paresthesias or weakness Psychiatric Psychiatric: Denies anxiety, depression, suicidal ideation or suicidal thoughts Endocrine Endocrinology: Denies polydipsia or polyuria EXAM Physical Exam Const Vital Signs: 12/18/23 11:14 12/18/23 11:32 12/18/23 13:14 Temperature 98.7 F Temperature Source Temporal Pulse Rate 108 H 91 Respiratory Rate 20 H 16 Respiratory Effort Normal Non-Labored Respiratory Pattern Normal Blood Pressure 123/103 H 115/92 H Blood Pressure Mean 109 99 Pulse Ox 99 98 Oxygen Delivery Method Room Air Room Air Positive well nourished General Appearance ED: NAD; Negative for pallor HEENT Reports moist mucous membranes Eyes PERRL and EOMs intact bilaterally Resp normal respiratory effort and clear to auscultation bilaterally Auscultation: Negative for rales, rhonchi or wheezes Cardio regular rate and regular rhythm Neuro oriented x3 and CN's II-XII intact bilaterally Sensorium / Orientation: alert Motor Exam: strength 5/5 throughout Psych mental status grossly normal Skin no rashes or lesions noted General Skin Exam: Negative for jaundice or pallor MDM MDM MDM Narrative Medical decision making narrative: Patient presenting with viral symptoms. Tested for COVID, influenza, RSV all negative. IV was established she was given Toradol and Benadryl as she states this helps with her headache. She does states she is allergic to Reglan. On reevaluation the patient states she had fallen asleep and felt like her headache was better and her nausea as well. She will be given a prescription for Zofran for home. Impression: 1. Viral syndrome Discharge Plan Triage Chief Complaint: General Illness ED Provider: Ron Culp Dx/Rx/DC Orders Prescriptions: New ondansetron 4 mg tablet,disintegrating 4 mg PO Q8H PRN PRN (Reason: Nausea) Qty: 14 0RF No Action Excedrin Extra Strength 1 EACH tablet 1 ea PO DAILY PRN (Reason: Headache) albuterol sulfate [Ventolin HFA] 90 mcg/actuation HFA aerosol inhaler 1 - 2 puff inhalation Q4H PRN PRN (Reason: Wheezing) Qty: 1 0RF triamcinolone acetonide 0.1 % cream 1 applic topical BID Stand Alone Forms: ED Work / School Excuse Primary Care Provider: CHANTEL SINGH Referrals: CHANTEL SINGH CRNP [Primary Care Provider] - Print Language: [place] Disposition Disposition: Home, Self Care
[2023-12-18 14:27] VITALS: BP 132/67; PULSE 79; RESP 16; TEMP 36.6; O2SAT 99
== END 2023-12-18 14:28 | disposition home or self-care (01) ==
PROVIDERS: Emergency Provider Student in an Organized Health Care Education/Training Program; PCP Nurse Practitioner Adult Health; Visit Provider Student in an Organized Health Care Education/Training Program
DX: B34.9 Viral infection, unspecified (principal); R11.2 Nausea with vomiting, unspecified; F17.290 Nicotine dependence, other tobacco product, uncomplicated; R51.9 Headache, unspecified
CPT/HCPCS: 87631; 96361; 96374; 96375; 99282; J7030

== ENCOUNTER 2024-10-23 15:08 | Emergency (ER) | payer OTHER, SELFPAY ==
[2024-10-23 15:09] VITALS: BP 135/99; PULSE 111; RESP 22; TEMP 37.2; O2SAT 98; BMI 39.4
--- NOTE | 2024-10-23 15:19 | EX.ED.VIS.UR ---
HPI HPI - URI History of Present Illness Chief Complaint: Sore Throat Detail of Chief Complaint: Sore throat Informant: patient Narrative Narrative: Patient presents to the emergency department complaint of a sore throat that started 3 days ago. Patient states that she went to urgent care yesterday and was swabbed for strep and was positive for strep today. She has penicillin allergy therefore and Zithromax. Patient continues to complain of swollen lymph nodes and pain in her throat. She has just been feeling hot and cold and has had subjective fever at home. Patient states her son also has strep throat currently. She has no medical history. ROS ROS ED Review of Systems ROS Unobtainable: other Constitutional Constitutional ED: Reports chills, fever(s), lethargy and sweats; Denies weight loss Eyes Eyes: Denies blurry vision, change in vision or diplopia ENT ENT ED: Reports sore throat; Denies rhinorrhea Cardiovascular Cardiovascular: Denies chest pain, orthopnea or racing heartbeat Respiratory/Chest Respiratory/Chest: Denies cough, dyspnea, dyspnea on exertion, orthopnea or sputum Gastrointestinal Gastrointestinal: Denies abdominal pain, diarrhea, nausea or vomiting Genitourinary Genitourinary ED: Denies dysuria, hematuria or urinary frequency Musculoskeletal Musculoskeletal: Denies arthralgias, back pain, myalgias or neck pain Integumentary Denies abscess, Abrasions or rash Neurologic Neurologic: Denies headache(s) or weakness Psychiatric Psychiatric: Denies anxiety, depression or suicidal thoughts Endocrine Endocrinology: Denies polydipsia, polyphagia or polyuria Hematologic/Lymphatic Hematologic/Lymphatic: Denies easy bleeding, easy bruising or lymphadenopathy Allergic/Immunologic Allergic/Immunologic ED: Denies mouth swelling, tongue swelling or urticaria PFSH PFSH Medical History Osteochondritis dissecans of left ankle Left ankle pain Home Medications ?Medication ?Instructions ?Recorded ?Last Taken ?Type [id number] 250 1 ea PO DAILY PRN Headache 10/09/18 Unknown History mg-250 mg-65 mg tablet (Excedrin Extra Strength) albuterol sulfate 90 mcg/actuation 1 - 2 puff inhalation Q4H PRN PRN 07/31/23 Unknown Rx aerosol inhaler (Ventolin HFA) Wheezing ##1 ondansetron 4 mg disintegrating 4 mg PO Q8H PRN PRN Nausea #14 tabs 12/18/23 Unknown Rx tablet triamcinolone acetonide 0.1 % 1 applic topical BID 12/18/23 Unknown History topical cream Allergy/AdvReac Type Severity Reaction Status Date / Time amoxicillin (From Augmentin) Allergy Rash Verified 10/23/24 15:09 clavulanic acid (From Allergy Rash Verified 10/23/24 15:09 Augmentin) metoclopramide (From Reglan) AdvReac Intermediate Other Verified 10/23/24 15:09 Surgical History Hx of appendectomy Social History Smoking Status: Current every day smoker tobacco type: e-cigarettes EXAM Physical Exam Const Vital Signs: 10/23/24 15:09 Temperature 99 F Temperature Source Temporal Pulse Rate 111 H Respiratory Rate 22 H Blood Pressure 135/99 H Blood Pressure Mean 111 Pulse Ox 98 Oxygen Delivery Method Room Air Positive well nourished and well developed General Appearance ED: well developed and NAD HEENT Reports TM's clear and moist mucous membranes HEENT Narrative: Patient with pharyngeal erythema. She has exudates of the tonsils. She has anterior lymphadenopathy noted. Uvula in the midline without trismus. normocephalic and atraumatic; Negative for trauma or tenderness Tympanic Membrane ED: Yes TM's clear Eyes PERRL and EOMs intact bilaterally General Eye ED: Negative for pale conjunctiva or scleral icterus Neck No no lymphadenopathy, supple and no JVD General: lymphadenopathy; Negative for tenderness Chest Wall inspection of chest normal and palpation of chest normal Chest: Negative for tenderness Resp normal respiratory effort and clear to auscultation bilaterally Effort and Inspection: Negative for respiratory distress or pain with movement Auscultation: Negative for rhonchi, wheezes or diminished lung sounds Cardio regular rate, regular rhythm, S1 normal heart sound, S2 normal heart sound and no murmurs Peripheral Pulses: pulses 2+ throughout GI normal to inspection, nondistended, normoactive bowel sounds, soft to palpation, non-tender, non-distended and no masses Back/Spine no CVA tenderness and no thoracic nor lumbar tenderness Extremity normal to inspection General Extremety ED: Negative for edema General Extremity: Negative for edema Neuro oriented x3, CN's II-XII intact bilaterally, no sensory deficits noted and gait normal Sensorium / Orientation: awake, alert, oriented to person, oriented to place and oriented to time Motor Exam: strength 5/5 throughout and strength abnormal Psych mental status grossly normal Skin no rashes or lesions noted and no wounds MDM MDM MDM Narrative Medical decision making narrative: Patient presents with sore throat and recent diagnosis of strep yesterday. Son also has strep. Clinically patient looks well. She does not appear dehydrated. Already on antibiotics since yesterday. I will give her Decadron 10 mg p.o. I offered shot of Toradol which she refused. She is advised use ibuprofen and salt water gargles. She is to push fluids. Advised to follow-up with primary care physician on-call for no doc within the next 3 to 5 days. Vies to return if difficulty swallowing on secretions or condition should worsen anyway. Discharge Plan Triage Chief Complaint: Sore Throat ED Provider: Gregoria Mai Dx/Rx/DC Orders Clinical Impression: Acute streptococcal pharyngitis Instructions: ED Pharyngitis, Strep (Confirmed) Prescriptions: No Action Excedrin Extra Strength 1 EACH tablet 1 ea PO DAILY PRN (Reason: Headache) albuterol sulfate [Ventolin HFA] 90 mcg/actuation HFA aerosol inhaler 1 - 2 puff inhalation Q4H PRN PRN (Reason: Wheezing) Qty: 1 0RF triamcinolone acetonide 0.1 % cream 1 applic topical BID ondansetron 4 mg tablet,disintegrating 4 mg PO Q8H PRN PRN (Reason: Nausea) Qty: 14 0RF Primary Care Provider: CHANTEL SINGH Referrals: Favian Babin MD [Med Staff - Director Of Materials Management] - 3-5 Days CHANTEL SINGH CRNP [Primary Care Provider] - Print Language: Bulgarian Disposition Disposition: Home, Self Care
[2024-10-23] MEDS: dexAMETHasone 4 MG Tablet 10 MG PO (15:33)
== END 2024-10-23 15:38 | disposition home or self-care (01) ==
LOC: ED 15:35
PROVIDERS: Emergency Provider Emergency Medicine; PCP Nurse Practitioner Adult Health; Visit Provider Emergency Medicine
DX: J02.0 Streptococcal pharyngitis (principal); F17.290 Nicotine dependence, other tobacco product, uncomplicated
CPT/HCPCS: 99282